=== PATIENT | male | born 1975 | race Caucasian/White ===

== ENCOUNTER 2018-02-05 22:18 | Emergency (ER) | payer OTHER, SELFPAY ==
[2018-02-05 22:27] VITALS: BP 146/87; PULSE 72; RESP 14; TEMP 37.2; O2SAT 99
--- NOTE | 2018-02-05 22:34 | ED.ABDPAIN ---
HPI - Abdominal Pain General Chief Complaint: Abdominal Pain Stated Complaint: STOMACH ISSUES Time Seen by Provider: 02/05/18 22:23 Source: patient and family Mode of arrival: ambulatory Limitations: no limitations History of Present Illness HPI narrative: 42-year-old nonsmoking male presents with a few days of epigastric discomfort, bloating with nausea. His symptoms worsened with food and drink. He denies any fever or chills. He has had similar symptoms in the past when he had gallbladder disease which resulted in a surgery. He denies chest pain or shortness of breath. He denies any diarrhea and is otherwise well and free of complaint MD complaint: abdominal pain Onset (ago): day(s) Pain Consistency: intermittent Location: epigastric Severity: moderate Quality: cramping and aching Radiation: back Relieving factors: nothing Exacerbating factors: eating Related Data Home Medications Medication Instructions Recorded Confirmed lisinopril 02/05/18 warfarin 02/05/18 Previous Rx's Medication Instructions Recorded pantoprazole [Protonix] 40 mg PO DAILY #30 tab 02/05/18 Allergies Allergy/AdvReac Type Severity Reaction Status Date / Time No Known Drug Allergies Allergy Verified 02/05/18 22:29 Review of Systems Review of Systems All systems reviewed & are unremarkable except as noted in HPI and below Constitutional Denies chills, Denies fever(s), Denies lethargy and Denies weakness Eyes Denies change in vision, Denies eye discharge, Denies irritation and Denies loss of vision ENT Ears, Nose, Mouth, and Throat: Denies change in voice, Denies neck pain and Denies sore throat Cardiovascular Denies chest pain, Denies irregular heart rhythm, Denies lightheadedness, Denies palpitations, Denies dyspnea, Denies dyspnea on exertion and Denies orthopnea Respiratory Denies cough, Denies dyspnea, Denies dyspnea on exertion and Denies wheezing Gastrointestinal Gastrointestinal: Reports abdominal pain, Denies change in bowel habits, Denies diarrhea, Reports nausea and Denies vomiting Genitourinary Denies hematuria, Denies flank pain, Denies urinary incontinence and Denies urinary urgency Musculoskeletal Denies neck pain Integumentary/Breasts Denies pruritus, Denies erythema, Denies rash and Denies wounds Neurologic Denies confusion, Denies loss of vision and Denies weakness Psychiatric Denies anxiety, Denies confusion, Denies depression, Denies homicidal ideation and Denies suicidal ideation Endocrine Denies palpitations Hematologic/Lymphatic Denies easy bruising Allergic/Immunologic Denies wheezing [facility] Social History Smoking Status: Never smoker Exam Narrative Exam Narrative: GENERAL: This is a well-nourished, well-developed patient, in mild distress. HEAD: Atraumatic. Normocephalic. No temporal or scalp tenderness. EYES: Pupils equal round and reactive. Extraocular motions intact. No scleral icterus. No injection or drainage. ENT: Nose without bleeding, purulent drainage or septal hematoma. Throat without erythema, tonsillar hypertrophy or exudate. Uvula midline. Airway patent. NECK: Trachea midline. No JVD or lymphadenopathy. Supple, nontender, no meningeal signs. CARDIOVASCULAR: Regular rate and rhythm without murmurs, gallops, or rubs. RESPIRATORY: Clear to auscultation. Breath sounds equal bilaterally. No wheezes, rales, or rhonchi. GASTROINTESTINAL: Abdomen soft, mild epigastric tenderness, nondistended. No hepato-splenomegaly, or palpable masses. No guarding. EXTREMITIES: No clubbing, cyanosis, or edema. No joint tenderness, effusion, or edema noted. BACK: Nontender without deformity or crepitance. No flank tenderness. NEURO: AOx3. SKIN: No rash or erythema. Initial Vital Signs Initial Vital Signs: Vital Signs Temperature 99.0 F 02/05/18 22:27 Pulse Rate 72 02/05/18 22:27 Respiratory Rate 14 02/05/18 22:27 Blood Pressure 146/87 H 02/05/18 22:27 Pulse Oximetry 99 02/05/18 22:27 Course Orders Ordered: ED Orders 02/05/18 22:46 Complete Blood Count AUTO DIFF Stat Comprehensive Metabolic Panel Stat Lipase Stat Prothrombin Time INR Stat Discontinued Medications Sodium Chloride (Normal Saline 0.9%) 1,000 mls @ 1,000 mls/hr IV BOLUS ONE Stop: 02/05/18 23:34 Last Infusion: 02/05/18 23:43 Dose: 0 mls/hr Admin: 02/05/18 22:54 Dose: 1,000 mls/hr Ondansetron HCl (Zofran) 4 mg IV NOW ONE Stop: 02/05/18 22:36 Pantoprazole Sodium (Protonix) 40 mg IV NOW ONE Stop: 02/05/18 22:36 Last Admin: 02/05/18 22:54 Dose: 40 mg Vital Signs - 8 hr 02/05/18 22:27 02/05/18 23:42 Temperature 99.0 F Pulse Rate 72 60 Respiratory Rate 14 14 Blood Pressure 146/87 H 118/70 Pulse Oximetry 99 100 MDM - Abdominal Pain Differential Diagnosis Differential diagnosis: Likely acute appendicitis, calculus of kidney, constipation, diverticulitis, gastroenteritis, pancreatitis and small bowel obstruction Medical Records Attestation: I reviewed the patient's medical records. Lab Data Attestation: I reviewed the patient's lab results. Result diagrams: 02/05/18 22:46 02/05/18 22:46 Lab Results 02/05/18 02/05/18 02/05/18 Range/Units 22:46 22:46 22:46 WBC 7.2 (4.5-11.0) X10^3/uL RBC 4.91 (4.5-5.9) X10^6/uL Hgb 15.9 (13.5-17.5) g/dL Hct 45.6 (41-53) % MCV 92.9 (80-100) fL MCH 32.5 (26-34) PG MCHC 35.0 (30-36) % RDW 12.9 (11.6-14.8) % Plt Count 244 (150-400) X10^3/uL Neut % (Auto) 58.6 (50-75) % Lymph % (Auto) 31.6 (25-40) % [place] % (Auto) 7.2 (3-14) % Eos % (Auto) 1.9 L (2-4) % Baso % (Auto) 0.7 (0-2) % Neut # (Auto) 4200 (0524-8218) /uL PT 28.9 H (10.1-12.7) SECONDS INR 2.5 H (0.9-1.3) Sodium 137 (137-145) mmol/L Potassium 4.1 (3.4-5.1) mmol/L Chloride 100 (98-107) mmol/L Carbon Dioxide 27 (22-32) mmol/L BUN 14 (9-20) mg/dL Creatinine 0.80 (0.66-1.25) mg/dL Estimated GFR > 60.0 (>60) mL/min BUN/Creatinine Ratio 17.5 (6-22) Glucose 94 (70-100) mg/dL Calcium 9.4 (8.4-10.2) mg/dL Total Bilirubin 0.9 (0.2-1.3) mg/dL AST 35 (17-59) IU/L ALT 41 (21-72) IU/L Alkaline Phosphatase 78 (38-126) U/L Total Protein 7.6 (6.3-8.2) g/dL Albumin 4.4 (3.5-5.0) g/dL Globulin 3.2 (1.7-4.1) g/dL Albumin/Globulin Ratio 1.4 (1.0-2.8) Lipase 56 (23-300) U/L MDM Narrative Medical decision making narrative: Pancreatitis considered but thought less likely given normal labs Biliary or hepatic problems considered but thought less likely given normal labs. Patient's history and physical are most consistent with reflux or ulcer Discharge Plan Departure Patient Disposition: Home Clinical Impression: Abdominal pain, acute, epigastric, Dyspepsia Discharge Date/Time: 02/05/18 23:42 Interventions: ED Discharge Assessment Last Done: 02/05/18 23:42 Instructions: DI for Dyspepsia Activity Restrictions/Additional Instructions: 1. Drink plenty of fluids with frequent small sips. 2. For the next 24 hours a clear liquid diet is advised. After that please employ a brat diet which would include bananas, rice, apples, toast. 3. Please take medications as directed. 4. Please follow-up with your doctor in the next 1-2 days. Call the office for an appointment. 5. Please return to the emergency Department for any worsening or persistent symptoms, such as increasing pain or fever. Prescriptions: New pantoprazole [Protonix] 40 mg tablet,delayed release (DR/EC) 40 mg PO DAILY Qty: 30 RF: 0 No Action lisinopril 2.5 mg Tablet RF: 0 warfarin RF: 0
[2018-02-05] MEDS: PANTOPRAZOLE 40 MG VIAL IV (22:54)
[2018-02-05] MEDS: SODIUM CHLORIDE 0.9% 1,000 ML 1000 ML IV (22:54)
[2018-02-05 22:55] LABS: Add Manual Diff / Slide Review NO; Basophils Percent Auto 0.7 % (0-2); Eosinophils Percent Auto 1.9 % (2-4); Hematocrit 45.6 % (41-53); Hemoglobin 15.9 g/dL (13.5-17.5); Lymphocytes Percent Auto 31.6 % (25-40); Mean Corpuscular Hemoglobin 32.5 PG (26-34); Mean Corpuscular Volume 92.9 fL (80-100); Monocytes Percent Auto 7.2 % (3-14); Neutrophils Absolute Auto 4200 /uL (1500-7000); Neutrophils Percent Auto 58.6 % (50-75); Platelet Count 244 X10^3/uL (150-400); Red Blood Cell Count 4.91 X10^6/uL (4.5-5.9); Red Cell Distribution Width 12.9 % (11.6-14.8); White Blood Cell Count 7.2 X10^3/uL (4.5-11.0)
[2018-02-05 23:00] LABS: INR 2.5 (0.9-1.3); Prothrombin Time 28.9 SECONDS (10.1-12.7)
[2018-02-05 23:05] LABS: Alanine Aminotransferase 41 IU/L (21-72); Albumin 4.4 g/dL (3.5-5.0); Albumin Globulin Ratio 1.4 (1.0-2.8); Alkaline Phosphatase 78 U/L (38-126); Aspartate Aminotransferase 35 IU/L (17-59); BUN Creatinine Ratio 17.5 (6-22); Bilirubin Total 0.9 mg/dL (0.2-1.3); Blood Urea Nitrogen 14 mg/dL (9-20); Calcium 9.4 mg/dL (8.4-10.2); Carbon Dioxide 27 mmol/L (22-32); Chloride 100 mmol/L (98-107); Estimated Glomerular Filt Rate > 60.0 mL/min (>60); Globulin 3.2 g/dL (1.7-4.1); Glucose 94 mg/dL (70-100); HEMOLYSIS 15 (0-50); Lipase 56 U/L (23-300); Potassium 4.1 mmol/L (3.4-5.1); Sodium 137 mmol/L (137-145); Total Protein 7.6 g/dL (6.3-8.2)
[2018-02-05 23:42] VITALS: BP 118/70; PULSE 60; RESP 14; O2SAT 100
== END 2018-02-05 23:42 | disposition home or self-care (01) ==
PROVIDERS: Emergency Provider Emergency Medicine
DX: R10.9 Unspecified abdominal pain (principal); R10.13 Epigastric pain
CPT/HCPCS: 36591; 80053; 83690; 85025; 85610; 96361; 96374; 96375; 99283; 99284; C9113

== ENCOUNTER 2018-04-07 16:45 | Emergency (ER) | payer OTHER, SELFPAY ==
[2018-04-07 16:58] VITALS: BP 135/88; PULSE 80; RESP 16; TEMP 36.6; O2SAT 100; BMI 32.5
[2018-04-07 18:01] LABS: Add Manual Diff / Slide Review NO; Basophils Absolute Auto 0 /uL (0-100); Basophils Percent Auto 0.7 % (0-2); Eosinophils Absolute Auto 100 /uL (0-450); Hematocrit 44.6 % (41-53); Hemoglobin 15.1 g/dL (13.5-17.5); Lymphocytes Absolute Auto 2100 /uL (1100-4500); Mean Corpuscular HGB Conc 33.9 % (30-36); Mean Corpuscular Hemoglobin 32.2 PG (26-34); Monocytes Absolute Auto 600 /uL (0-900); Monocytes Percent Auto 8.6 % (3-14); Neutrophils Absolute Auto 3700 /uL (1500-7000); Neutrophils Percent Auto 56.7 % (50-75); Platelet Count 209 X10^3/uL (150-400); Red Blood Cell Count 4.69 X10^6/uL (4.5-5.9); Red Cell Distribution Width 13.3 % (11.6-14.8); White Blood Cell Count 6.5 X10^3/uL (4.5-11.0)
[2018-04-07 18:04] LABS: Blood Urea Nitrogen 15 mg/dL (9-20); Calcium 9.1 mg/dL (8.4-10.2); Carbon Dioxide 28 mmol/L (22-32); Chloride 103 mmol/L (98-107); Creatine Kinase 95 U/L (55-170); Estimated Glomerular Filt Rate > 60.0 mL/min (>60); Glucose 95 mg/dL (70-100); HEMOLYSIS < 15 (0-50); Lactate (Lactic Acid) 0.9 mmol/L (0.7-2.1); Magnesium 2.1 mg/dL (1.6-2.3); Potassium 4.3 mmol/L (3.4-5.1); Sodium 138 mmol/L (137-145)
[2018-04-07 18:13] LABS: D Dimer < 200 ng/mL (<230)
[2018-04-07 18:15] LABS: Troponin I < 0.012 ng/mL (0.01-0.034)
--- NOTE | 2018-04-07 18:24 | DI.US.S_ITS ---
PROCEDURE: US PERIPH VENOUS LOW EXTREM BI INDICATIONS: HISTORY DVT; CALF PAIN TECHNIQUE: Real-time imaging, as well as color and pulse Doppler interrogation, were performed of the deep veins of both legs from the inguinal ligament to the popliteal fossa. COMPARISON: None. FINDINGS: The deep veins are normally compressible, and free of intraluminal thrombus. Color and pulse Doppler demonstrate normal phasic intravascular flow. There is normal augmentation response to distal compression maneuver. IMPRESSION: Negative for deep venous thrombosis of the bilateral lower extremities. Dictated by: Chema Machado M.D. on 04/07/2018 at 19:45 Approved by: Chema Machado M.D. on 04/07/2018 at 19:45
[2018-04-07 18:27] LABS: B Type Natriuretic Peptide < 100 (<100)
[2018-04-07 18:52] LABS: Procalcitonin < 0.05 ng/mL (<0.5)
[2018-04-07 19:02] VITALS: BP 116/58; PULSE 73; RESP 18; O2SAT 100
--- NOTE | 2018-04-07 19:50 | ED.SOB ---
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 He denies any specific injury or overuse syndrome. His pain is worse with motion and improves with rest. He denies any cough or hemoptysis. He is not currently short of breath. He continues to take his Coumadin, has missed no doses and most recent INR was 2.3. He did have an episode of left leg pain in the absence of injury yesterday. He denies recent travel, surgery or injury. He denies chest pain MD Complaint: shortness of breath Onset (ago): day(s) Severity: mild Consistency/Duration: intermittent and now resolved Relieving factors: nothing Exacerbating factors: movement Known history of: PE and DVT Treatment prior to arrival: none Related Data Home oxygen amount: none Home Medications Medication Instructions Recorded Confirmed lisinopril 02/05/18 warfarin 02/05/18 Previous Rx's Medication Instructions Recorded pantoprazole [Protonix] 40 mg PO DAILY #30 tab 02/05/18 Allergies Allergy/AdvReac Type Severity Reaction Status Date / Time No Known Drug Allergies Allergy Verified 02/05/18 22:29 Review of Systems Constitutional Denies chills, Denies fever(s), Denies lethargy and Denies weakness Eyes Denies change in vision, Denies eye discharge, Denies irritation and Denies loss of vision ENT Ears, Nose, Mouth, and Throat: Denies change in voice, Denies neck pain and Denies sore throat Cardiovascular Denies chest pain, Denies irregular heart rhythm, Denies lightheadedness, Denies palpitations, Reports dyspnea, Denies dyspnea on exertion and Denies orthopnea Respiratory Denies cough, Reports dyspnea, Denies dyspnea on exertion and Denies wheezing Gastrointestinal Gastrointestinal: Denies abdominal pain, Denies change in bowel habits, Denies diarrhea, Denies nausea and Denies vomiting Genitourinary Denies hematuria, Denies flank pain, Denies urinary incontinence and Denies urinary urgency Musculoskeletal Reports back pain and Denies neck pain Integumentary/Breasts Denies pruritus, Denies erythema, Denies rash and Denies wounds Neurologic Denies confusion, Denies loss of vision and Denies weakness Psychiatric Denies anxiety, Denies confusion, Denies depression, Denies homicidal ideation and Denies suicidal ideation Endocrine Denies palpitations Hematologic/Lymphatic Denies easy bruising Allergic/Immunologic Denies wheezing PFSH Social History Smoking Status: Never smoker Social History Smoking Status: Never smoker Exam Narrative Exam Narrative: GENERAL: This is a well-nourished, well-developed patient, in mild distress. HEAD: Atraumatic. Normocephalic. No temporal or scalp tenderness. EYES: Pupils equal round and reactive. Extraocular motions intact. No scleral icterus. No injection or drainage. ENT: Nose without bleeding, purulent drainage or septal hematoma. Throat without erythema, tonsillar hypertrophy or exudate. Uvula midline. Airway patent. NECK: Trachea midline. No JVD or lymphadenopathy. Supple, nontender, no meningeal signs. CARDIOVASCULAR: Regular rate and rhythm without murmurs, gallops, or rubs. RESPIRATORY: Clear to auscultation. Breath sounds equal bilaterally. No wheezes, rales, or rhonchi. GASTROINTESTINAL: Abdomen soft, non-tender, nondistended. No hepato-splenomegaly, or palpable masses. No guarding. EXTREMITIES: No clubbing, cyanosis, or edema. No joint tenderness, effusion, or edema noted. BACK: tenderness to palpation of the he is paraspinal muscles in the midthoracic region on the right upper back medial to the scapula No flank tenderness. NEURO: AOx3. SKIN: No rash or erythema. Initial Vital Signs Initial Vital Signs: Vital Signs Temperature 97.9 F 04/07/18 16:58 Pulse Rate 80 04/07/18 16:58 Respiratory Rate 16 04/07/18 16:58 Blood Pressure 135/88 04/07/18 16:58 Pulse Oximetry 100 04/07/18 16:58 Course Orders Ordered: ED Orders 04/07/18 17:32 Consult to Respiratory Therapy Evaluate & Treat EKG-12 Lead Stat 04/07/18 17:40 B Type Natriuretic Peptide Stat Basic Metabolic Panel Stat Complete Blood Count AUTO DIFF Stat D Dimer Stat Lactate (Lactic Acid) Stat Magnesium Stat Procalcitonin Stat Troponin & CK Cardiac Panel Stat 04/07/18 18:24 US periph venous low extrem bi Stat Vital Signs - 8 hr 04/07/18 19:02 04/07/18 20:17 Pulse Rate 73 64 Respiratory Rate 18 12 Blood Pressure 113/58 L Blood Pressure [Right Arm] 116/58 L Pulse Oximetry 100 98 MDM - SOB/Dyspnea Differential Diagnosis Likely acute exacerbation of chronic obstructive airways disease, congestive heart failure, community acquired pneumonia, asthma with exacerbation and pulmonary embolism Medical Records Attestation: I reviewed the patient's medical records. Lab Data Attestation: I reviewed the patient's lab results. Result diagrams: 04/07/18 17:40 04/07/18 17:40 Lab Results 04/07/18 04/07/18 04/07/18 Range/Units 17:40 17:40 17:40 WBC 6.5 (4.5-11.0) X10^3/uL RBC 4.69 (4.5-5.9) X10^6/uL Hgb 15.1 (13.5-17.5) g/dL Hct 44.6 (41-53) % MCV 95.0 (80-100) fL MCH 32.2 (26-34) PG MCHC 33.9 (30-36) % RDW 13.3 (11.6-14.8) % Plt Count 209 (150-400) X10^3/uL Neut % (Auto) 56.7 (50-75) % Lymph % (Auto) 32.0 (25-40) % [place] % (Auto) 8.6 (3-14) % Eos % (Auto) 2.0 (2-4) % Baso % (Auto) 0.7 (0-2) % Neut # (Auto) 3700 (7163-5128) /uL Lymph # (Auto) 2100 (1681-5631) /uL [place] # (Auto) 600 (0-900) /uL Eos # (Auto) 100 (0-450) /uL Baso # (Auto) 0 (0-100) /uL D-Dimer < 200 (<230) ng/mL Sodium 138 (137-145) mmol/L Potassium 4.3 (3.4-5.1) mmol/L Chloride 103 (98-107) mmol/L Carbon Dioxide 28 (22-32) mmol/L BUN 15 (9-20) mg/dL Creatinine 1.00 (0.66-1.25) mg/dL Estimated GFR > 60.0 (>60) mL/min BUN/Creatinine Ratio 15.0 (6-22) Glucose 95 (70-100) mg/dL Lactate (0.7-2.1) mmol/L Calcium 9.1 (8.4-10.2) mg/dL Magnesium 2.1 (1.6-2.3) mg/dL Total Creatine Kinase 95 (55-170) U/L CK-MB (CK-2) TNP CK-MB (CK-2) Rel Index TNP Troponin I < 0.012 (0.01-0.034) ng/mL B-Natriuretic Peptide < 100 (<100) Procalcitonin (<0.5) ng/mL 04/07/18 04/07/18 Range/Units 17:40 17:40 WBC (4.5-11.0) X10^3/uL RBC (4.5-5.9) X10^6/uL Hgb (13.5-17.5) g/dL Hct (41-53) % MCV (80-100) fL MCH (26-34) PG MCHC (30-36) % RDW (11.6-14.8) % Plt Count (150-400) X10^3/uL Neut % (Auto) (50-75) % Lymph % (Auto) (25-40) % [place] % (Auto) (3-14) % Eos % (Auto) (2-4) % Baso % (Auto) (0-2) % Neut # (Auto) (1148-6803) /uL Lymph # (Auto) (9779-8661) /uL [place] # (Auto) (0-900) /uL Eos # (Auto) (0-450) /uL Baso # (Auto) (0-100) /uL D-Dimer (<230) ng/mL Sodium (137-145) mmol/L Potassium (3.4-5.1) mmol/L Chloride (98-107) mmol/L Carbon Dioxide (22-32) mmol/L BUN (9-20) mg/dL Creatinine (0.66-1.25) mg/dL Estimated GFR (>60) mL/min BUN/Creatinine Ratio (6-22) Glucose (70-100) mg/dL Lactate 0.9 (0.7-2.1) mmol/L Calcium (8.4-10.2) mg/dL Magnesium (1.6-2.3) mg/dL Total Creatine Kinase (55-170) U/L CK-MB (CK-2) CK-MB (CK-2) Rel Index Troponin I (0.01-0.034) ng/mL B-Natriuretic Peptide (<100) Procalcitonin < 0.05 (<0.5) ng/mL Imaging Data Venous US: Radiologist's impression: [address] [address] Ultrasound Report Signed Patient: Mike Botello LMR#: [id number] : 1975Acct:[id number] Age/Sex: 42 / MDate of Service: 04/07/18 Loc: ED Accession Number: [id number] Procedure: US periph venous low extrem bi Ordering Provider: Chetan Gomez D.O. PROCEDURE: US PERIPH VENOUS LOW EXTREM BI INDICATIONS: HISTORY DVT; CALF PAIN TECHNIQUE: Real-time imaging, as well as color and pulse Doppler interrogation, were performed of the deep veins of both legs from the inguinal ligament to the popliteal fossa. COMPARISON: None. FINDINGS: The deep veins are normally compressible, and free of intraluminal thrombus. Color and pulse Doppler demonstrate normal phasic intravascular flow. There is normal augmentation response to distal compression maneuver. IMPRESSION: Negative for deep venous thrombosis of the bilateral lower extremities. Dictated by: Chema Machado M.D. on 04/07/2018 at 19:45 Approved by: Chema Machado M.D. on 04/07/2018 at 19:45 ECG Data Attestation: I personally reviewed and interpreted this ECG as follows: Prior ECG tracings: not available for review Interpretation: EKG is normal sinus rhythm rate [73 ] and free of any signs of ischemia or ectopy. No ST segmental elevation or depression. No T wave inversions MDM Narrative Medical decision making narrative: 42-year-old male with history of DVT and PE is anticoagulated on Coumadin presents with an episode of shortness of breath which has since resolved and some ongoing right upper back pain. His fear is of recurrence of pulmonary embolism. We had extensive discussions at the bedside and significant sure decision making place a role in the evaluation this patient. At no point has he had chest pain and all vital signs are stable. His EKG is a normal sinus rhythm without signs of heart strain. Patient has negative troponin and BNP, suggesting lack of strain. Bilateral lower extremity ultrasounds demonstrated no DVT and current D-dimer is negative. Given the above-stated findings we elect not to pursue a pulmonary embolism with a CT angiogram at this point time. Patient and are given extensive return precautions and are able to verbalize understanding Discharge Plan Departure Patient Disposition: Home Clinical Impression: Acute thoracic myofascial strain Qualifiers: Encounter type: initial encounter Qualified Code(s): S29.019A - Strain of muscle and tendon of unspecified wall of thorax, initial encounter Discharge Date/Time: 04/07/18 20:21 Interventions: ED Discharge Assessment Last Done: 04/07/18 20:17 Instructions: DI for Thoracic Back Pain Activity Restrictions/Additional Instructions: *You have been diagnosed with [ acute upper back pain ] *What to do: *Take medications as directed *Follow up with your primary care provider in 2-3 days, call for an appointment. Let them know you were seen in the Emergency Department and that we ask that you be seen in follow up *Return to ER if you should have any new, worsening or concerning symptoms Prescriptions: No Action lisinopril 2.5 mg Tablet RF: 0 warfarin RF: 0 pantoprazole [Protonix] 40 mg tablet,delayed release (DR/EC) 40 mg PO DAILY Qty: 30 RF: 0 Referrals: Pavel Elliott MD [Primary Care Provider] -
[2018-04-07 20:17] VITALS: BP 113/58; PULSE 64; RESP 12; O2SAT 98
== END 2018-04-07 20:21 | disposition home or self-care (01) ==
PROVIDERS: Emergency Medicine; Emergency Provider Emergency Medicine; PCP Family Medicine
DX: S29.019A Strain of muscle and tendon of unspecified wall of thorax, initial encounter (principal); Z86.711 Personal history of pulmonary embolism; Z79.01 Long term (current) use of anticoagulants
CPT/HCPCS: 36591; 80048; 82550; 83605; 83735; 83880; 84145; 84484; 85025; 85379; 93005; 93010; 93970; 99283; 99285

== ENCOUNTER → 2018-04-14 10:06 | Outpatient (CLI) | payer OTHER, SELFPAY | PROVIDERS: PCP Family Medicine; Visit Provider Physician Assistant | DX: R68.89 Other general symptoms and signs (principal) | CPT/HCPCS: 87400 ==

== ENCOUNTER 2018-04-29 14:55 | Emergency (ER) | payer OTHER, SELFPAY ==
[2018-04-29 15:01] VITALS: BP 119/85; PULSE 80; RESP 16; TEMP 36.5; O2SAT 97; BMI 30.5
[2018-04-29 15:31] LABS: Add Manual Diff / Slide Review NO; Basophils Absolute Auto 100 /uL (0-100); Eosinophils Absolute Auto 0 /uL (0-450); Eosinophils Percent Auto 0.7 % (2-4); Hematocrit 44.2 % (41-53); Hemoglobin 15.2 g/dL (13.5-17.5); Lymphocytes Absolute Auto 1700 /uL (1100-4500); Lymphocytes Percent Auto 26.3 % (25-40); Mean Corpuscular HGB Conc 34.4 % (30-36); Mean Corpuscular Hemoglobin 32.2 PG (26-34); Mean Corpuscular Volume 93.5 fL (80-100); Monocytes Absolute Auto 500 /uL (0-900); Monocytes Percent Auto 7.1 % (3-14); Neutrophils Absolute Auto 4200 /uL (1500-7000); Neutrophils Percent Auto 64.9 % (50-75); Platelet Count 304 X10^3/uL (150-400); Red Blood Cell Count 4.73 X10^6/uL (4.5-5.9); Red Cell Distribution Width 12.9 % (11.6-14.8); White Blood Cell Count 6.5 X10^3/uL (4.5-11.0)
--- NOTE | 2018-04-29 15:34 | DI.US.S_ITS ---
PROCEDURE: US PERIP VENOUS LOW EXTREM LT INDICATIONS: LOWER LEFT LEG PAIN AND SWELLING, HISTORY OF CLOT TECHNIQUE: Real-time imaging, as well as color and pulse Doppler interrogation, were performed of the lower extremity deep veins from the inguinal ligament to the popliteal fossa. COMPARISON: [facility], , [facility] VENOUS LOW EXTREM BI, 04/07/2018, 18:53. FINDINGS: There are nonocclusive filling defects in the popliteal vein consistent with deep venous thrombosis. The common femoral and superficial femoral veins are normally compressible, and free of intraluminal thrombus. IMPRESSION: Non-occlusive filling defect involving the left popliteal vein consistent with DVT. The result was discussed with Shani Campos in ER. Dictated by: Raphael Gant M.D. on 04/29/2018 at 16:46 Approved by: Raphael Gant M.D. on 04/29/2018 at 16:50
[2018-04-29 15:41] LABS: INR 3.1 (0.9-1.3); Prothrombin Time 36.8 SECONDS (10.1-12.7)
[2018-04-29 15:46] LABS: Alanine Aminotransferase 34 IU/L (21-72); Albumin 4.7 g/dL (3.5-5.0); Albumin Globulin Ratio 1.6 (1.0-2.8); Alkaline Phosphatase 78 U/L (38-126); Aspartate Aminotransferase 29 IU/L (17-59); BUN Creatinine Ratio 15.6 (6-22); Bilirubin Total 0.6 mg/dL (0.2-1.3); Blood Urea Nitrogen 14 mg/dL (9-20); Calcium 9.2 mg/dL (8.4-10.2); Carbon Dioxide 29 mmol/L (22-32); Chloride 101 mmol/L (98-107); Estimated Glomerular Filt Rate > 60.0 mL/min (>60); Globulin 2.9 g/dL (1.7-4.1); Glucose 95 mg/dL (70-100); HEMOLYSIS < 15 (0-50); Potassium 3.9 mmol/L (3.4-5.1); Sodium 138 mmol/L (137-145); Total Protein 7.6 g/dL (6.3-8.2)
[2018-04-29 15:47] LABS: D Dimer < 200 ng/mL (<230)
--- NOTE | 2018-04-29 15:53 | ED_ITS ---
HPI - Extremity Injury (Lower) <TOM Ramos - Last Filed: 04/29/18 19:41> General Chief Complaint: Extremity Injury, Lower Stated Complaint: pain left leg, states PE Time Seen by Provider: 04/29/18 15:15 Source: patient and family Mode of arrival: ambulatory Limitations: no limitations History of Present Illness HPI Narrative: Patient is a 42-year-old male nonsmoker presents with his with a chief complaint of left lower leg pain. 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 He did complain of slight shortness of breath while going up the stairs yesterday. He denies any fevers, but states he was treated for the flu recently. He was worried that his inactivity while he had the flu led to a DVT. The ache is described as pulling at the back of his calf. He has been hospitalized with a saddle embolus prior. He denies any current chest pain or current shortness of breath. Related Data Home Medications Medication Instructions Recorded Confirmed warfarin 5 mg tablet 5 mg PO 5XW tab 04/14/18 04/29/18 warfarin 7.5 mg tablet 7.5 mg PO SUWE tab 04/14/18 04/29/18 lisinopril 5 mg PO DAILY 04/29/18 04/29/18 Previous Rx's Medication Instructions Recorded hydroxyzine pamoate 50 mg PO TID-QID PRN #20 cap 04/29/18 rivaroxaban [Xarelto] 15 mg PO BID 21 Days #42 tab 04/29/18 Allergies Allergy/AdvReac Type Severity Reaction Status Date / Time No Known Drug Allergies Allergy Verified 04/29/18 15:06 Review of Systems <TOM Ramos - Last Filed: 04/29/18 19:41> Review of Systems GENERAL: Denies chills, fatigue, malaise, fever, sweats. HEENT: Denies sinus pain, ear pain, sore throat, difficulty swallowing, dizziness. RESPIRATORY: See HPI CARDIOVASCULAR: Denies chest pain, palpitations, orthopnea, edema, GASTROINTESTINAL: Denies nausea, vomiting, abdominal pain, diarrhea, con stipation, melena. : Denies dysuria, frequency, incontinence, hematuria, urinary retention. MUSCULOSKELETAL: See HPI SKIN: Denies rash, skin lesions, or other NEUROLOGIC: Denies weakness, headache, numbness, change in speech, confusion, seizures, incoordination. PSYCHIATRIC: No concerning psychosocial issues. 12 point review of systems is negative except for those stated above PFSH <TOM Ramos - Last Filed: 04/29/18 19:41> Social History Smoking Status: Never smoker Exam <TOM Ramos - Last Filed: 04/29/18 19:41> Narrative Exam Narrative: GENERAL: This is a well-nourished, well-developed patient, in no acute distress HEAD: Atraumatic. Normocephalic. No temporal or scalp tenderness. EYES: Pupils equal round and reactive. Extraocular motions intact. No scleral ic terus. No injection or drainage. ENT: Nose without bleeding, purulent drainage or septal hematoma. Throat without erythema, tonsillar hypertrophy or exudate. Uvula midline. Airway patent. NECK: Trachea midline. No JVD or lymphadenopathy. Supple, nontender, no meningeal signs. CARDIOVASCULAR: Regular rate and rhythm without murmurs, gallops, or rubs. RESPIRATORY: Clear to auscultation. Breath sounds equal bilaterally. No wheezes, rales, or rhonchi. No cough. No increased respiratory effort. No stridor. GASTROINTESTINAL: Abdomen soft, non-tender, nondistended. No hepato- splenomegaly, or palpable masses. No guarding. EXTREMITIES: No clubbing, cyanosis, or edema. No joint tenderness, effusion, or edema noted. Pain to palpation of left calf, posterior aspect. Positive pedal pulses. BACK: Nontender without deformity or crepitance. No flank tenderness. NEURO: AOx3. SKIN: No rash or erythema. No erythema noted. Initial Vital Signs Initial Vital Signs: Vital Signs Temperature 97.7 F 04/29/18 15:01 Pulse Rate 80 04/29/18 15:01 Respiratory Rate 16 04/29/18 15:01 Blood Pressure 119/85 04/29/18 15:01 Pulse Oximetry 97 04/29/18 15:01 <Pau Herron DO - Last Filed: 05/01/18 10:15> Initial Vital Signs Initial Vital Signs: Vital Signs Temperature 97.7 F 04/29/18 15:01 Pulse Rate 80 04/29/18 15:01 Respiratory Rate 16 04/29/18 15:01 Blood Pressure 119/85 04/29/18 15:01 Pulse Oximetry 97 04/29/18 15:01 Course <TOM Ramos - Last Filed: 04/29/18 19:41> Orders Ordered: Discontinued Medications Lorazepam (Ativan) 1 mg PO NOW ONE Stop: 04/29/18 16:10 Last Admin: 04/29/18 16:26 Dose: 1 mg Consultations Consultation #1: I spoke with Dr. Jimenez, the agriculture consultant physician for Dr. Murillo. She recommended that the patient be started on Xarelto or Eliquis. She also initiated a hematology referral, and scheduled the patient for a PCP appointment at 2:00 p.m. on Sunday. Vital Signs - 8 hr 04/29/18 15:01 04/29/18 16:05 04/29/18 18:50 Temperature 97.7 F Pulse Rate 80 78 88 Respiratory Rate 16 15 16 Blood Pressure 119/85 Blood Pressure [Left Arm] 129/89 120/88 Pulse Oximetry 97 98 97 <Pau Herron DO - Last Filed: 05/01/18 10:15> Orders Ordered: Discontinued Medications Lorazepam (Ativan) 1 mg PO NOW ONE Stop: 04/29/18 16:10 Last Admin: 04/29/18 16:26 Dose: 1 mg Vital Signs - 8 hr 04/29/18 15:01 04/29/18 16:05 04/29/18 18:50 Temperature 97.7 F Pulse Rate 80 78 88 Respiratory Rate 16 15 16 Blood Pressure 119/85 Blood Pressure [Left Arm] 129/89 120/88 Pulse Oximetry 97 98 97 MDM - Extremity Injury (Lower) <TOM Ramos - Last Filed: 04/29/18 19:41> Lab Data Result diagrams: 04/29/18 15:25 04/29/18 15:25 Lab Results 04/29/18 04/29/18 04/29/18 Range/Units 15:25 15:25 15:25 WBC 6.5 (4.5-11.0) X10^3/uL RBC 4.73 (4.5-5.9) X10^6/uL Hgb 15.2 (13.5-17.5) g/dL Hct 44.2 (41-53) % MCV 93.5 (80-100) fL MCH 32.2 (26-34) PG MCHC 34.4 (30-36) % RDW 12.9 (11.6-14.8) % Plt Count 304 (150-400) X10^3/uL Neut % (Auto) 64.9 (50-75) % Lymph % (Auto) 26.3 (25-40) % [place] % (Auto) 7.1 (3-14) % Eos % (Auto) 0.7 L (2-4) % Baso % (Auto) 1.0 (0-2) % Neut # (Auto) 4200 (5207-3029) /uL Lymph # (Auto) 1700 (3114-9049) /uL [place] # (Auto) 500 (0-900) /uL Eos # (Auto) 0 (0-450) /uL Baso # (Auto) 100 (0-100) /uL PT 36.8 H (10.1-12.7) SECONDS INR 3.1 H (0.9-1.3) D-Dimer < 200 (<230) ng/mL Sodium 138 (137-145) mmol/L Potassium 3.9 (3.4-5.1) mmol/L Chloride 101 (98-107) mmol/L Carbon Dioxide 29 (22-32) mmol/L BUN 14 (9-20) mg/dL Creatinine 0.90 (0.66-1.25) mg/dL Estimated GFR > 60.0 (>60) mL/min BUN/Creatinine Ratio 15.6 (6-22) Glucose 95 (70-100) mg/dL Calcium 9.2 (8.4-10.2) mg/dL Total Bilirubin 0.6 (0.2-1.3) mg/dL AST 29 (17-59) IU/L ALT 34 (21-72) IU/L Alkaline Phosphatase 78 (38-126) U/L Total Protein 7.6 (6.3-8.2) g/dL Albumin 4.7 (3.5-5.0) g/dL Globulin 2.9 (1.7-4.1) g/dL Albumin/Globulin Ratio 1.6 (1.0-2.8) Imaging Data Venous US: Radiologist's impression: [address] [address] Ultrasound Report Signed Patient: Mike Botello LMR#: [id number] : 1975Acct:[id number] Age/Sex: 42 / MDate of Service: 04/29/18 Loc: ED Accession Number: [id number] Procedure: US perip venous low extrem lt Ordering Provider: Shani Campos PROCEDURE: US PERIP VENOUS LOW EXTREM LT INDICATIONS: LOWER LEFT LEG PAIN AND SWELLING, HISTORY OF CLOT TECHNIQUE: Real-time imaging, as well as color and pulse Doppler interrogation, were performed of the lower extremity deep veins from the inguinal ligament to the popliteal fossa. COMPARISON: [facility], PERIP VENOUS LOW EXTREM BI, 04/07/2018, 18:53. FINDINGS: There are nonocclusive filling defects in the popliteal vein consistent with deep venous thrombosis. The common femoral and superficial femoral veins are nor bridgette compressible, and free of intraluminal thrombus. IMPRESSION: Non-occlusive filling defect involving the left popliteal vein consistent with DVT. The result was discussed with Shani Campos in ER. Dictated by: Raphael Gant M.D. on 04/29/2018 at 16:46 Approved by: Raphael Gant M.D. on 04/29/2018 at 16:50 CTA chest: Radiologist's impression: [address] [address] [address] Scan Report Signed Patient: Mike Botello LMR#: [id number] : 1975Acct:[id number] Age/Sex: 42 / MDate of Service: 04/29/18 Loc: ED Accession Number: [id number] Procedure: CT angio chest PE protocol Ordering Provider: Shani Campos PROCEDURE: CT ANGIO CHEST PE PROTOCOL INDICATIONS: shortness of breath, hx clots, dvt on US TECHNIQUE: After the administration of intravenous contrast, 2 mm thick sections acquired from the pulmonary apices to the posterior costophrenic angles. 3-dimensional maximum intensity projection (MIP) coronal and sagittal reformats were then acquired through the thorax. For radiation dose reduction, the following was used: automated exposure control, adjustment of mA and/or kV according to patient size. COMPARISON: None. FINDINGS: Image quality: Suboptimal contrast timing for evaluation of distal emboli. Pulmonary arteries: Pulmonary arteries are normal in size, and demonstrate no intraluminal filling defects to suggest central pulmonary embolism. Distal emboli cannot be evaluated secondary to contrast opacification. Lungs and pleura: Lungs are clear. No pleural effusions or pneumothorax. Central and peripheral airways are patent. Mediastinum: Heart size is normal, without pericardial effusion. No mediastinal or hilar adenopathy. Thoracic aorta is normal in caliber and enhancement. Esophag us is normal in caliber, without hiatal hernia. Bones and chest wall: No suspicious bony lesions. Ribs and thoracic spine appear intact throughout. Thyroid gland is unremarkable. No axillary or supraclavicular adenopathy. Abdomen: Visualized upper abdominal solid organs appear normal in the early arterial phase of enhancement. IMPRESSION: 1. No central pulmonary emboli. Distal branches are suboptimally evaluated. 2. Lungs are clear. Dictated by: Mallorie Vazquez M.D. on 04/29/2018 at 16:38 Approved by: Mallorie Vazquez M.D. on 04/29/2018 at 16:40 ECG Data Attestation: I personally reviewed and interpreted this ECG as follows: Interpretation: SR. ventricular rate 79. no ectopy. NE 156. MDM Narrative Medical decision making narrative: The patient is a 42-year-old male with a long history of DVTs and PEs who is on warfarin. The patient developed a DVT while on Coumadin. Thus I spoke regarding the patient to Dr. Herron next several times as well as the on-call physician for his primary care group. It was agreed that the patient should start on Eliquis or Xarelto. I elected to use xarelto as his INR does not have to be as low as the transfer to Eliquis. I gave him instructions to stop taking his Coumadin and start taking Xarelto. His INR is 3.1 today. The patient was made an appointment for his primary care provider on Sunday afternoon and his primary care physician's office will call him tomorrow. The patient requested Ambien to help him sleep given his new DVT diagnosis, which I declined at this point time. I did give him a prescription of Vistaril. I discussed at length return precautions including shortness of breath or any acute concerns. The patient is had no questions or concerns upon discharge. I encouraged him to not take any long flights for the next few days, as he travels frequently for work. I also gave him a note off of work. No questions or concerns upon discharge. <Pau Herron, DO - Last Filed: 05/01/18 10:15> Lab Data Lab Results 04/29/18 04/29/18 04/29/18 Range/Units 15:25 15:25 15:25 WBC 6.5 (4.5-11.0) X10^3/uL RBC 4.73 (4.5-5.9) X10^6/uL Hgb 15.2 (13.5-17.5) g/dL Hct 44.2 (41-53) % MCV 93.5 (80-100) fL MCH 32.2 (26-34) PG MCHC 34.4 (30-36) % RDW 12.9 (11.6-14.8) % Plt Count 304 (150-400) X10^3/uL Neut % (Auto) 64.9 (50-75) % Lymph % (Auto) 26.3 (25-40) % [place] % (Auto) 7.1 (3-14) % Eos % (Auto) 0.7 L (2-4) % Baso % (Auto) 1.0 (0-2) % Neut # (Auto) 4200 (5928-2579) /uL Lymph # (Auto) 1700 (6084-4448) /uL [place] # (Auto) 500 (0-900) /uL Eos # (Auto) 0 (0-450) /uL Baso # (Auto) 100 (0-100) /uL PT 36.8 H (10.1-12.7) SECONDS INR 3.1 H (0.9-1.3) D-Dimer < 200 (<230) ng/mL Sodium 138 (137-145) mmol/L Potassium 3.9 (3.4-5.1) mmol/L Chloride 101 (98-107) mmol/L Carbon Dioxide 29 (22-32) mmol/L BUN 14 (9-20) mg/dL Creatinine 0.90 (0.66-1.25) mg/dL Estimated GFR > 60.0 (>60) mL/min BUN/Creatinine Ratio 15.6 (6-22) Glucose 95 (70-100) mg/dL Calcium 9.2 (8.4-10.2) mg/dL Total Bilirubin 0.6 (0.2-1.3) mg/dL AST 29 (17-59) IU/L ALT 34 (21-72) IU/L Alkaline Phosphatase 78 (38-126) U/L Total Protein 7.6 (6.3-8.2) g/dL Albumin 4.7 (3.5-5.0) g/dL Globulin 2.9 (1.7-4.1) g/dL Albumin/Globulin Ratio 1.6 (1.0-2.8) Discharge Plan Departure Patient Disposition: Home Clinical Impression: DVT (deep venous thrombosis) Qualifiers: DVT location: lower extremity Affected thrombotic vein of extremity: popliteal Chronicity: acute Laterality: left Qualified Code(s): I82.432 - Acute embolism and thrombosis of left popliteal vein Discharge Date/Time: 04/29/18 19:20 Interventions: ED Discharge Assessment Last Done: 04/29/18 19:20 Instructions: DI for Deep Vein Thrombosis Activity Restrictions/Additional Instructions: You have developed a blood clot in her left lower leg while on Coumadin. However your CT of her chest showed no clots. Please stop taking the Coumadin and start taking the Xarelto. I have arranged for an appointment with her primary care provider at 2:00pm on Sunday. Dr. Murillo is nurse will call you tomorrow for a check in. They are also starting a hematology referral for you. I spoke with Dr. Jimenez from your primary care practice. I have given you a small prescription of Vistaril to use for anxiety. Do not combine this with any type 1 antihistamines such as Benadryl. Come back to the ER for any acute concerns such as shortness of breath. Prescriptions: New Xarelto 15 mg tablet 15 mg PO BID 21 Days Qty: 42 RF: 0 hydroxyzine pamoate 50 mg capsule 50 mg PO TID-QID PRN (Reason: anxiety) Qty: 20 RF: 0 No Action warfarin 7.5 mg tablet 7.5 mg PO SUWE RF: 0 warfarin 5 mg tablet 5 mg PO 5XW RF: 0 lisinopril 5 mg tablet 5 mg PO DAILY RF: 0 Referrals: Pavel Elliott MD [Primary Care Provider] - Stand Alone Forms: Work Release Note <Pau Herron DO - Last Filed: 05/01/18 10:15> Cosign ED Attending Cosignature Attestation: I was immediately available in the department for consultation. Documentation has been reviewed. I agree with assessment and plan.
[2018-04-29 16:05] VITALS: BP 129/89; PULSE 78; RESP 15; O2SAT 98
--- NOTE | 2018-04-29 16:06 | DI.CT.S_ITS ---
PROCEDURE: CT ANGIO CHEST PE PROTOCOL INDICATIONS: shortness of breath, hx clots, dvt on US TECHNIQUE: After the administration of intravenous contrast, 2 mm thick sections acquired from the pulmonary apices to the posterior costophrenic angles. 3-dimensional maximum intensity projection (MIP) coronal and sagittal reformats were then acquired through the thorax. For radiation dose reduction, the following was used: automated exposure control, adjustment of mA and/or kV according to patient size. COMPARISON: None. FINDINGS: Image quality: Suboptimal contrast timing for evaluation of distal emboli. Pulmonary arteries: Pulmonary arteries are normal in size, and demonstrate no intraluminal filling defects to suggest central pulmonary embolism. Distal emboli cannot be evaluated secondary to contrast opacification. Lungs and pleura: Lungs are clear. No pleural effusions or pneumothorax. Central and peripheral airways are patent. Mediastinum: Heart size is normal, without pericardial effusion. No mediastinal or hilar adenopathy. Thoracic aorta is normal in caliber and enhancement. Esophagus is normal in caliber, without hiatal hernia. Bones and chest wall: No suspicious bony lesions. Ribs and thoracic spine appear intact throughout. Thyroid gland is unremarkable. No axillary or supraclavicular adenopathy. Abdomen: Visualized upper abdominal solid organs appear normal in the early arterial phase of enhancement. IMPRESSION: 1. No central pulmonary emboli. Distal branches are suboptimally evaluated. 2. Lungs are clear. Dictated by: Mallorie Vazquez M.D. on 04/29/2018 at 16:38 Approved by: Mallorie Vazquez M.D. on 04/29/2018 at 16:40
[2018-04-29] MEDS: LORazepam 0.5 MG TABLET 1 MG PO (16:26)
[2018-04-29 18:50] VITALS: BP 120/88; PULSE 88; RESP 16; O2SAT 97
== END 2018-04-29 19:20 | disposition home or self-care (01) ==
PROVIDERS: Emergency Medicine; Emergency Provider Nurse Practitioner Family; PCP Family Medicine
DX: I82.432 Acute embolism and thrombosis of left popliteal vein (principal); R06.02 Shortness of breath
CPT/HCPCS: 36591; 71275; 80053; 85025; 85379; 85610; 93005; 93971; 99282; 99285; Q9967

== ENCOUNTER 2019-11-29 10:34 | Emergency (ER) | payer OTHER, SELFPAY ==
[2019-11-29 10:42] VITALS: PULSE 92; O2SAT 99
[2019-11-29 10:47] VITALS: BP 142/89; PULSE 88; RESP 16; TEMP 37.1; O2SAT 99; BMI 30.5
--- NOTE | 2019-11-29 10:57 | DI.US.S_ITS ---
PROCEDURE: US SCROTUM INDICATIONS: SOFT LUMP RIGHT SCROTUM TECHNIQUE: Real-time scanning was performed of the scrotum and testicles, with image documentation. Color and pulse Doppler interrogation was performed of both testicles. COMPARISON: [facility], CR, XR HIP W PEL IF DONE RT 2V, 11/29/2019, 11:48. FINDINGS: Right: Testicle is normal in size at 4.6 x 2.3 x 2.5 cm, and homogenous in echotexture. Epididymis is normal in overall size. 2 simple cysts are seen involving the right epididymis that measure up to 4 mm. No hydrocele. A right-sided varicocele is seen. Overlying scrotal skin is normal in thickness. Left: Testicle is normal in size at 4.5 x 2.1 x 2.6 cm, and homogeneous in echotexture. Epididymis is normal in overall size and morphology. No hydrocele or varicoceles. Overlying scrotal skin is normal in thickness. Doppler: Color and pulse Doppler demonstrate normal and symmetric arterial flow in both testicles. IMPRESSION: Right-sided varicocele. Two simple cysts are noted involving the right epididymis that measure up to 4 mm. No intratesticular masses are seen. Dictated by: Ruperto Harris M.D. on 11/29/2019 at 11:34 Approved by: Ruperto Harris M.D. on 11/29/2019 at 11:36
[2019-11-29 11:13] LABS: Bacteria Urine None Seen; WBC Urine None Seen (0-5/HPF)
[2019-11-29 11:43] LABS: Culture Indicated Urine Cult Not Indicated; RBC Urine 0-1/HPF (0-5/HPF)
--- NOTE | 2019-11-29 11:53 | DI.RAD.S_ITS ---
PROCEDURE: XR HIP W PEL IF DONE RT 2V INDICATIONS: pain no injury TECHNIQUE: AP pelvis with lateral view(s) of the right hip(s). COMPARISON: None. FINDINGS: Bones: No fractures or dislocations. Pelvic ring appears intact. No suspicious bony lesions. No significant abnormality of the hip joints can be seen. Soft tissues: The visualized bowel gas pattern is normal. No suspicious soft tissue calcifications. Vasectomy clips can be seen. IMPRESSION: No significant plain film abnormality is seen. If it would be helpful for clinical management decision making, please consider a dedicated hip MRI for further evaluation (assuming that there is no contraindication). If there is strong clinical concern for a labral abnormality, this should be performed according to the arthrogram protocol. Dictated by: Ruperto Harris M.D. on 11/29/2019 at 11:14 Approved by: Ruperto Harris M.D. on 11/29/2019 at 11:14
--- NOTE | 2019-11-29 12:03 | ED_ITS ---
HPI - Male Genitourinary General Chief complaint: Urogenital-Male Stated complaint: PAINFUL RIGHT TESTICLE Time Seen by Provider: 11/29/19 10:47 Source: patient Mode of arrival: Ambulatory Limitations: no limitations History of Present Illness HPI Narrative: Patient is a 44-year-old male with history of DVT and PE on Coumadin who presents with right testicular pain ongoing since June of 2019. He says he feels a small mass on the right side but seems to be getting progressively painful. He also is having some right hip pain that seems to radiate to his medial thigh. He has had sciatic pain in the past this does not feel the same. He denies any weight loss or night sweats. He has no penile discharge. He also previously had a right inguinal hernia repair. MD Complaint: testicle pain and testicle swelling Onset (ago): month(s) Location: right testicle Radiation: right inguinal region Related Data Home Medications Medication Instructions Recorded Confirmed warfarin 5 mg tablet 5 mg PO 5XW tab 04/14/18 04/29/18 warfarin 7.5 mg tablet 7.5 mg PO SUWE tab 04/14/18 04/29/18 lisinopril 5 mg PO DAILY 04/29/18 04/29/18 Previous Rx's Medication Instructions Recorded hydroxyzine pamoate 50 mg PO TID-QID PRN #20 cap 04/29/18 hydrocodone-acetaminophen [[place]] 1 tab PO Q6H PRN #10 tab 11/29/19 Allergies Allergy/AdvReac Type Severity Reaction Status Date / Time No Known Drug Allergies Allergy Verified 04/29/18 15:06 Review of Systems Review of Systems Narrative: GENERAL: Denies chills, fatigue, malaise, fever, sweats, travel HEENT: Denies sinus pain, ear pain, sore throat, difficulty swallowing, neck pain RESPIRATORY: Denies dyspnea, cough, wheezing, hemoptysis, sputum. CARDIOVASCULAR: Denies chest pain, palpitations, orthopnea, edema GASTROINTESTINAL: Denies nausea, vomiting, abdominal pain, diarrhea, constipation, melena. : See HPI MUSCULOSKELETAL: Denies weakness, joint pain, or bony pain SKIN: No rash, no erythema, no pruritus NEUROLOGIC: Denies weakness, dizziness, headache, numbness, change in speech, confusion PSYCHIATRIC: No concerning psychosocial issues. 12 point review of systems is negative except for those stated above and HPI Patient History Medical History DVT (deep venous thrombosis) (Acute) Pulmonary embolism (Acute) Surgical History Status post right inguinal hernia repair (Acute) Social History Smoking Status: Never smoker Smoking Status: Never smoker alcohol intake frequency: a few times a week Alcohol type: beer Substance Use Type: does not use Exam Initial Vital Signs Initial Vital Signs: Vital Signs Pulse Rate 92 H 11/29/19 10:42 Pulse Oximetry 99 11/29/19 10:42 GENERAL: Well-appearing, well-nourished and in no acute distress. HEENT: Head atraumatic,EOMI, pupils reactive, face symmetric, moist mucous membranes CARDIOVASCULAR: Regular rate and rhythm without murmurs, rubs or gallops. RESPIRATORY: Breath sounds equal bilaterally, no wheezes rales or rhonchi. ABDOMEN: Soft, nontender. Normoactive bowel sounds all 4 quadrants. No guarding or rebound. : Nurse Bryon present for exam. Right testicle Soft mass like present superior pole nontender non erythematous not hard, no inguinal hernia present bilaterally. Left testicle is nontender EXTREMITIES: Normal range of motion, no clubbing or edema. Neurovascularly intact NEUROLOGICAL: Alert and oriented x4 SKIN: Warm, dry, no laceration, no petechiae, no rashes or lesions. Course Orders Ordered: ED Orders 11/29/19 10:57 US scrotum Stat 11/29/19 11:04 Urine Microscopic Stat 11/29/19 11:53 XR hip w pel if done RT 2V Stat Vital Signs Vital signs: Vital Signs - 8 hr 11/29/19 10:42 11/29/19 10:47 11/29/19 12:47 Temperature 98.7 F Pulse Rate 92 H 88 65 Respiratory Rate 16 16 Blood Pressure 142/89 H 123/73 Pulse Oximetry 99 99 100 MDM - Male Genitourinary Lab Data Attestation: I reviewed the patient's lab results. Labs: Lab Results 11/29/19 Range/Units 11:04 Urine RBC 0-1/hpf (0-5/HPF) Urine WBC None seen (0-5/HPF) Urine Bacteria None seen (None) Ur Culture Indicated? Cult not indicated Urine Dip Bedside Urine Glucose Negative Bedside Urine Bilirubin - Negative Bedside Urine Ketone - Negative Urine Specific [place] 1.015 Bedside Urine Occult Blood +/- Bedside Urine pH 6.0 Bedside Urine Protein - Negative Bedside Urine Urobilinogen - Negative Bedside Urine Nitrite - Negative Bedside Urine Leukocytes - Negative Esterase Imaging Data US scrotum: Radiologist's Impression: PROCEDURE: US SCROTUM INDICATIONS: SOFT LUMP RIGHT SCROTUM TECHNIQUE: Real-time scanning was performed of the scrotum and testicles, with image documentation. Color and pulse Doppler interrogation was performed of both testicles. COMPARISON: [facility], CR, XR HIP W PEL IF DONE RT 2V, 11/29/2019, 11:48. FINDINGS: Right: Testicle is normal in size at 4.6 x 2.3 x 2.5 cm, and homogenous in echotexture. Epididymis is normal in overall size. 2 simple cysts are seen involving the right epididymis that measure up to 4 mm. No hydrocele. A right-sided varicocele is seen. Overlying scrotal skin is normal in thickness. Left: Testicle is normal in size at 4.5 x 2.1 x 2.6 cm, and homogeneous in echotexture. Epididymis is normal in overall size and morphology. No hydrocele or varicoceles. Overlying scrotal skin is normal in thickness. Doppler: Color and pulse Doppler demonstrate normal and symmetric arterial flow in both testicles. IMPRESSION: Right-sided varicocele. Two simple cysts are noted involving the right epididymis that measure up to 4 mm. No intratesticular masses are seen. Dictated by: Ruperto Harris M.D. on 11/29/2019 at 11:34 Extremity x-ray #1: Radiologist's Impression: PROCEDURE: XR HIP W PEL IF DONE RT 2V INDICATIONS: pain no injury TECHNIQUE: AP pelvis with lateral view(s) of the right hip(s). COMPARISON: None. FINDINGS: Bones: No fractures or dislocations. Pelvic ring appears intact. No suspicious bony lesions. No significant abnormality of the hip joints can be seen. Soft tissues: The visualized bowel gas pattern is normal. No suspicious soft tissue calcifications. Vasectomy clips can be seen. IMPRESSION: No significant plain film abnormality is seen. If it would be helpful for clinical management decision making, please consider a dedicated hip MRI for further evaluation (assuming that there is no contraindication). If there is strong clinical concern for a labral abnormality, this should be performed according to the arthrogram protocol. Dictated by: Ruperto Harris M.D. on 11/29/2019 at 11:14 Approved by: Ruperto Harris M.D. on 11/29/2019 at 11:14 MDM Narrative Medical decision making narrative: Patient's ultrasound shows a cyst and varicocele no mass. He has an appointment with Urology in January. At this time I recommend supportive underwear and pain control. He is on warfarin. He does check his INR at home regularly the last 1 was 2.5 on November 20. At this time there is no indication to check his INR today. X-rays negative I do not believe his whole right hip pain is related to his testicular cyst. It seems to be muscular, x-ray is negative Discharge Plan Departure Patient Disposition: Home Clinical Impression: Right varicocele, Cyst of testis Discharge Date/Time: 11/29/19 13:11 Instructions: DI for Varicocele Activity Restrictions/Additional Instructions: *You have been diagnosed with varicocele and testicular cyst *What to do: At this time recommend supportive underwear mom with ibuprofen if needed. This is unlikely causing your right hip pain. Your right hip pain is probable musculoskeletal. *Continue to take medications as directed [place] 1 tablet every 4-6 hours if needed for severe pain *Follow up with your primary care provider in 2-3 days Follow-up with Urology either in January or you may call Dr. Sutton to see if he has sooner availability *Return to ER if you should have increased testicular pain or swelling or any new, worsening or concerning symptoms My narcotics Prescriptions: New hydrocodone-acetaminophen [[place]] 5-325 mg tablet 1 tab PO Q6H PRN (Reason: pain) Qty: 10 RF: 0 No Action warfarin 7.5 mg tablet 7.5 mg PO SUWE RF: 0 warfarin 5 mg tablet 5 mg PO 5XW RF: 0 lisinopril 5 mg tablet 5 mg PO DAILY RF: 0 hydroxyzine pamoate 50 mg capsule 50 mg PO TID-QID PRN (Reason: anxiety) Qty: 20 RF: 0 Referrals: Maya Thorne MD [Non-Staff] - Pavel Elliott MD [Primary Care Provider] - Lyla Sutton MD [Physician] - Stand Alone Forms: Work Release Note
[2019-11-29 12:47] VITALS: BP 123/73; PULSE 65; RESP 16; O2SAT 100
== END 2019-11-29 13:11 | disposition home or self-care (01) ==
PROVIDERS: Emergency Provider Emergency Medicine; PCP Family Medicine
DX: I86.1 Scrotal varices (principal); N44.2 Benign cyst of testis; Z79.01 Long term (current) use of anticoagulants
CPT/HCPCS: 73502; 76870; 81003; 81015; 99284

== ENCOUNTER → 2020-02-14 15:09 | Outpatient (CLI) | payer OTHER, SELFPAY ==
--- NOTE | 2020-02-14 15:11 | DI.MRI.S_ITS ---
PROCEDURE: MR LUMBAR SPINE WO CON INDICATIONS: Radiculopathy, lumbosacral region, LOW BACK PAIN TECHNIQUE: Noncontrast sagittal T1 spin echo and T2 fast echo, sagittal STIR, axial T1 and T2 fast spin echo through the lumbar spine. In cases with scoliosis, additional coronal T2 fast spin echo may be performed. COMPARISON: None. FINDINGS: Image quality: Excellent. Alignment and Curvature: There is trace retrolithesis of L5 on S1. Bone Marrow: Marrow is of normal overall signal. No acute vertebral body compression fractures. Spinal Cord: Conus medullaris terminates at the T12 level. Visualized cord demonstrates normal signal and size. Paraspinous Soft Tissues: No paravertebral masses. Severe dessication at L5-S1, moderate L3-4, minimal to mild throughout the remainder of the spine. L1-L2: No disc bulge, spinal stenosis or foraminal narrowing. Minimal epidural lipomatosis. L2-L3: Mild disc bulge, with minimal canal effacement. Minimal to mild bilateral foraminal narrowing. Mild facet hypertrophy. Minimal epidural lipomatosis. L3-L4: Mild disc bulge, with minimal canal effacement. Minimal bilateral foraminal narrowing. Mild facet hypertrophy. Minimal epidural lipomatosis. L4-L5: Mild disc bulge, with minimal canal effacement. Mild bilateral foraminal narrowing. Mild facet hypertrophy. L5-S1: Mild asymmetric, left paracentral disc bulge. There is mild compromise of the left lateral recess. Increased T2 signal is present in the posterior disc consistent with annular fissure. Mild to moderate left and minimal right foraminal narrowing. Mild facet hypertrophy.. IMPRESSION: 1. Early degenerative changs with foraminal narrowing most notable at L5-S1 secondary to facet arthopathy. Dictated by: Mallorie Vazquez M.D. on 02/16/2020 at 10:54 Approved by: Mallorie Vazquez M.D. on 02/16/2020 at 11:11
== END ==
PROVIDERS: PCP Internal Medicine; Referring Provider Chiropractor Rehabilitation; Visit Provider Chiropractor Rehabilitation
DX: M54.5 Low back pain (principal); M47.27 Other spondylosis with radiculopathy, lumbosacral region; M48.07 Spinal stenosis, lumbosacral region
CPT/HCPCS: 72148

== ENCOUNTER 2020-04-30 13:40 | Emergency (ER) | payer OTHER, SELFPAY ==
[2020-04-30 13:48] VITALS: BP 130/81; PULSE 80; RESP 18; TEMP 36.3; O2SAT 98; BMI 30.6
--- NOTE | 2020-04-30 13:56 | DI.RAD.S_ITS ---
PROCEDURE: XR CHEST 1V INDICATIONS: Chest pain TECHNIQUE: One view of the chest was acquired. COMPARISON: None. FINDINGS: Surgical changes and devices: None. Lungs and pleura: Lungs are clear. No pleural effusions or pneumothorax. Mediastinum: Mediastinal contours appear normal. Heart size is normal. Bones and chest wall: No suspicious bony lesions. Overlying soft tissues appear unremarkable. IMPRESSION: No acute cardiopulmonary process demonstrated radiographically. Dictated by: Neal Rodriguez M.D. on 04/30/2020 at 14:34 Approved by: Neal Rodriguez M.D. on 04/30/2020 at 14:36
--- NOTE | 2020-04-30 14:21 | DI.CT.S_ITS ---
PROCEDURE: CT HEAD/BRAIN WO CON INDICATIONS: tingling / numbness on right side of face x 3 weeks. TECHNIQUE: Noncontrast 4.5 mm thick angled axial sections acquired from the foramen magnum to the vertex, with coronal and sagittal reformats. For radiation dose reduction, the following was used: automated exposure control, adjustment of mA and/or kV according to patient size. COMPARISON: None. FINDINGS: Image quality: Excellent. CSF spaces: Basal cisterns are patent. No extra-axial fluid collections. Ventricles are normal in size and shape. Brain: No midline shift. No intracranial masses or hemorrhage. [place]-white matter interface is normal. Skull and face: Calvarium and visualized facial bones are intact, without suspicious lesions. Sinuses: Visualized sinuses and mastoids are clear. IMPRESSION: No acute intracranial finding. Dictated by: Neal Rodriguez M.D. on 04/30/2020 at 14:33 Approved by: Neal Rodriguez M.D. on 04/30/2020 at 14:34
[2020-04-30 14:28] LABS: Add Manual Diff / Slide Review NO; Basophils Absolute Auto 100 /uL (0-100); Basophils Percent Auto 0.9 % (0-2); Eosinophils Absolute Auto 200 /uL (0-450); Eosinophils Percent Auto 2.3 % (2-4); Hematocrit 45.4 % (41-53); Hemoglobin 15.5 g/dL (13.5-17.5); Lymphocytes Absolute Auto 2600 /uL (1100-4500); Lymphocytes Percent Auto 36.8 % (25-40); Mean Corpuscular HGB Conc 34.1 % (30-36); Mean Corpuscular Hemoglobin 31.9 PG (26-34); Mean Corpuscular Volume 93.4 fL (80-100); Monocytes Absolute Auto 700 /uL (0-900); Monocytes Percent Auto 9.5 % (3-14); Neutrophils Absolute Auto 3500 /uL (1500-7000); Neutrophils Percent Auto 50.5 % (50-75); Platelet Count 237 X10^3/uL (150-400); Red Blood Cell Count 4.86 X10^6/uL (4.5-5.9); Red Cell Distribution Width 12.6 % (11.6-14.8)
[2020-04-30 14:34] LABS: INR 2.3 (0.9-1.3); Prothrombin Time 25.4 SECONDS (10.1-12.7)
[2020-04-30 14:37] LABS: Alanine Aminotransferase 27 IU/L (<50); Albumin 4.8 g/dL (3.5-5.0); Albumin Globulin Ratio 1.6 (1.0-2.8); Alkaline Phosphatase 82 U/L (38-126); Aspartate Aminotransferase 30 IU/L (17-59); BUN Creatinine Ratio 16.7 (6-22); Bilirubin Total 0.5 mg/dL (0.2-1.3); Blood Urea Nitrogen 14 mg/dL (9-20); Calcium 9.5 mg/dL (8.4-10.2); Carbon Dioxide 28 mmol/L (22-32); Chloride 101 mmol/L (98-107); Creatine Kinase 130 U/L (55-170); Estimated Glomerular Filt Rate > 60.0 mL/min (>60); Glucose 97 mg/dL (70-100); HEMOLYSIS < 15 (0-50); Lipase 92 U/L (23-300); PTT Partial Thromboplastin Tim 39 SECONDS (26.4-36.2); Potassium 4.2 mmol/L (3.4-5.1); Sodium 137 mmol/L (137-145); Total Protein 7.8 g/dL (6.3-8.2)
[2020-04-30 14:49] LABS: Troponin I < 0.012 ng/mL (0.01-0.034)
[2020-04-30 14:52] LABS: CKMB % Relative Index 0.6 % (1.5-5.0); Creatine Kinase MB 0.79 ng/mL (<2.37)
[2020-04-30 15:51] VITALS: PULSE 78; RESP 18; O2SAT 100
[2020-04-30 16:00] VITALS: PULSE 79; RESP 17; O2SAT 99
[2020-04-30 16:02] VITALS: BP 114/73; PULSE 77; RESP 13; O2SAT 99
--- NOTE | 2020-04-30 16:06 | ED.NEUROSD ---
HPI - Neuro Symptoms/Deficit General Chief Complaint: Neuro Symptoms/Deficit Stated Complaint: DIFFICULTY WITH EYE LID ON RIGHT SIDE/NUMBNESS Time Seen by Provider: 04/30/20 16:06 Source: patient and family () Mode of arrival: Ambulatory Limitations: no limitations History of Present Illness HPI Narrative: This is a 44-year-old male who comes in with complaint of 3 weeks of difficulty lifting the eyelid on the right side and tingling numbness of his right temporal cheek area. Patient states symptoms have not been progressing but have not been improving. He attempted to call his physician on Sunday he was contacted today by the office and was told to come to the emergency department. Patient denies any fevers, denies any severe headaches. He states he occasional has mild headaches. He has noted that when he sneezes, winces or blinks that the right eyelid will be slower to open than the left. Aleve did seem like it sticks but will open. He has also noted some tingling numbness of his right jaw. He denies any vision changes. No pain of the eye. No redness or injection. No dysarthria. No numbness, weakness or tingling that is new in his other extremities. He states he has chronic tingling in his bilateral lower extremities with known bulging discs and chronic foot drag on the left. No shortness of breath, no chest pain or pressure. No nausea no vomiting no rashes or skin changes. Patient has undefined clotting disorder and is on warfarin he has had multiple DVTs, PE but no prior CVA. Patient has had a history of inguinal hernia repair, vasectomy, cholecystectomy and had multiple angiographies for evaluation. He has also had an IVC filter placed and removed. He denies any allergies. No tobacco, no alcohol or illicit. He is accompanied by his . He follows with Dr. Montez for PCP. On Anticoagulants: Yes (coumadin) Related Data Home Medications Medication Instructions Recorded Confirmed warfarin 5 mg tablet 5 mg PO 5XW tab 04/14/18 04/29/18 warfarin 7.5 mg tablet 7.5 mg PO SUWE tab 04/14/18 04/29/18 lisinopril 5 mg PO DAILY 04/29/18 04/29/18 Previous Rx's Medication Instructions Recorded hydroxyzine pamoate 50 mg PO TID-QID PRN #20 cap 04/29/18 hydrocodone-acetaminophen [[place]] 1 tab PO Q6H PRN #10 tab 11/29/19 Allergies Allergy/AdvReac Type Severity Reaction Status Date / Time No Known Drug Allergies Allergy Verified 04/30/20 13:48 Review of Systems Review of Systems ROS Unobtainable: All systems reviewed & are unremarkable except as noted in HPI and below Hematologic/Lymphatic On Anticoagulants: Yes (coumadin) Patient History Medical History (Updated 04/30/20 @ 16:41 by Shani Cano DO) DVT (deep venous thrombosis) Pulmonary embolism Surgical History Status post right inguinal hernia repair Social History Smoking Status: Never smoker Smoking Status: Never smoker alcohol intake frequency: a few times a week Alcohol type: beer Substance Use Type: does not use Exam Narrative Exam Narrative: GEN: well nourished, well appearing male, alert and oriented x 3, patient appears to be in mild distress. HEENT: Atraumatic, pupils are equal round reactive to light, extraocular movements are intact, nares are clear, throat is clear without any exudates, erythema, tonsillar enlargement or uvular deviation, no facial droop. General: no globe trauma Eyelids: normal inspection. Patient right upper upper eyelid but it does lag slightly in comparison to the left. A twitch or spasm is appreciated. Lower lid does not appear weaker and patient is able to close his eyes against resistance. Conjunctiva/Sclera: normal inspection EOM: intact, no palsy/entrapment Pupils: PERRL, normal accomadation, pupil normalNo carotid bruits, pulses are equal in upper and lower extremities LUNGS:Lungs clear to auscultation, no wheezes, rales, crackles, chest moves symmetrically ABD:bowel sounds normal, soft, non-tender, no guarding, rebound, rigidity, no masses noted, no hepatosplenomegaly MSCL: Non-tender, no muscle atrophy, muscles strength 5/5 upper and lower extremities, full range of motion NEURO:CN 2-12 intact, sensation normal. finger nose finger test normal, heel worthy test normal SKIN: Rash, erythema or skin changes. No vesicles. Initial Vital Signs Initial Vital Signs: Vital Signs Temperature 97.3 F L 04/30/20 13:48 Pulse Rate 80 04/30/20 13:48 Respiratory Rate 18 04/30/20 13:48 Blood Pressure 130/81 04/30/20 13:48 Pulse Oximetry 98 04/30/20 13:48 Scores NIH Stroke Scale Level of Conciousness: Alert, keenly responsive Ask month/age: Answers both questions correctly. Open/close eyes, close hand: Performs both tasks correctly Best gaze horizontal: Normal Visual fitzgerald: No visual loss Facial palsy: Normal symetrical movement Left arm drift: No drift for full 10 sec Right arm drift: No drift for full 10 sec Left leg drift: No drift for full 5 sec Right leg drift: No drift for full 5 sec Limb ataxia: Absent Sensory on face/arms/legs: Normal, no sensory loss Best language: No aphasia, normal Dysarthria: Normal Extinction or inattention: No abnormality Total NIH Stroke scale score: 0 Course Orders Ordered: ED Orders 04/30/20 13:56 XR chest 1V Stat EKG-12 Lead Stat 04/30/20 14:18 Complete Blood Count AUTO DIFF Stat Comprehensive Metabolic Panel Stat Lipase Stat Partial Thromboplastin Time Stat Prothrombin Time INR Stat Troponin & CK Cardiac Panel Stat 04/30/20 14:21 CT head/brain wo con Stat Vital Signs Vital signs: Vital Signs - 8 hr 04/30/20 13:48 04/30/20 15:51 04/30/20 16:00 Temperature 97.3 F L Pulse Rate 80 78 79 Respiratory Rate 18 18 17 Blood Pressure 130/81 Pulse Oximetry 98 100 99 04/30/20 16:02 04/30/20 16:30 Temperature Pulse Rate 77 75 Respiratory Rate 13 20 Blood Pressure 114/73 124/75 Pulse Oximetry 99 97 MDM - Neuro Symptoms/Deficit Lab Data Attestation: I reviewed the patient's lab results. Result diagrams: 04/30/20 14:18 04/30/20 14:18 Labs: Lab Results 04/30/20 04/30/20 04/30/20 Range/Units 14:18 14:18 14:18 WBC 7.0 (4.5-11.0) X10^3/uL RBC 4.86 (4.5-5.9) X10^6/uL Hgb 15.5 (13.5-17.5) g/dL Hct 45.4 (41-53) % MCV 93.4 (80-100) fL MCH 31.9 (26-34) PG MCHC 34.1 (30-36) % RDW 12.6 (11.6-14.8) % Plt Count 237 (150-400) X10^3/uL Neut % (Auto) 50.5 (50-75) % Lymph % (Auto) 36.8 (25-40) % [place] % (Auto) 9.5 (3-14) % Eos % (Auto) 2.3 (2-4) % Baso % (Auto) 0.9 (0-2) % Neut # (Auto) 3500 (6085-2417) /uL Lymph # (Auto) 2600 (0598-0813) /uL [place] # (Auto) 700 (0-900) /uL Eos # (Auto) 200 (0-450) /uL Baso # (Auto) 100 (0-100) /uL PT 25.4 H (10.1-12.7) SECONDS INR 2.3 H (0.9-1.3) APTT 39 H (26.4-36.2) SECONDS Sodium 137 (137-145) mmol/L Potassium 4.2 (3.4-5.1) mmol/L Chloride 101 (98-107) mmol/L Carbon Dioxide 28 (22-32) mmol/L BUN 14 (9-20) mg/dL Creatinine 0.84 (0.66-1.25) mg/dL Estimated GFR > 60.0 (>60) mL/min BUN/Creatinine Ratio 16.7 (6-22) Glucose 97 (70-100) mg/dL Calcium 9.5 (8.4-10.2) mg/dL Total Bilirubin 0.5 (0.2-1.3) mg/dL AST 30 (17-59) IU/L ALT 27 (<50) IU/L Alkaline Phosphatase 82 (38-126) U/L Total Creatine Kinase 130 (55-170) U/L CK-MB (CK-2) 0.79 (<2.37) ng/mL CK-MB (CK-2) Rel Index 0.6 L (1.5-5.0) % Troponin I < 0.012 (0.01-0.034) ng/mL Total Protein 7.8 (6.3-8.2) g/dL Albumin 4.8 (3.5-5.0) g/dL Globulin 3.0 (1.7-4.1) g/dL Albumin/Globulin Ratio 1.6 (1.0-2.8) Lipase 92 (23-300) U/L Imaging Data CT scan - head: Radiologist's Impression: [address] [id number] Scan ReportSigned Patient: Mike Botello LMR#: [id number]: 1975Acct:[id number]/Sex: 44 / MDate of Service: 04/30/20Loc: EDAccession Number: [id number] Procedure: CT head/brain wo con Ordering Provider: Davey Gao PROCEDURE: CT HEAD/BRAIN WO CON INDICATIONS: tingling / numbness on right side of face x 3 weeks. TECHNIQUE: Noncontrast 4.5 mm thick angled axial sections acquired from the foramen magnum to the vertex, with coronal and sagittal reformats. For radiation dose reduction, the following was used: automated exposure control, adjustment of mA and/or kV according to patient size. COMPARISON: None. FINDINGS: Image quality: Excellent. CSF spaces: Basal cisterns are patent. No extra-axial fluid collections. Ventricles are normal in size and shape. Brain: No midline shift. No intracranial masses or hemorrhage. [place]-white matter interface is normal. Skull and face: Calvarium and visualized facial bones are intact, without suspicious lesions. Sinuses: Visualized sinuses and mastoids are clear. IMPRESSION: No acute intracranial finding. Dictated by: Neal Rodriguez M.D. on 04/30/2020 at 14:33 Approved by: Neal Rodriguez M.D. on 04/30/2020 at 14:34 Chest x-ray: Radiologist's Impression: [address] [id number] ReportSigned Patient: Mike Botello LMR#: [id number]: 1975Acct:[id number]/Sex: 44 / MDate of Service: 04/30/20Loc: EDAccession Number: [id number] Procedure: XR chest 1V Ordering Provider: Shani Cano D.O. PROCEDURE: XR CHEST 1V INDICATIONS: Chest pain TECHNIQUE: One view of the chest was acquired. COMPARISON: None. FINDINGS: Surgical changes and devices: None. Lungs and pleura: Lungs are clear. No pleural effusions or pneumothorax. Mediastinum: Mediastinal contours appear normal. Heart size is normal. Bones and chest wall: No suspicious bony lesions. Overlying soft tissues appear unremarkable. IMPRESSION: No acute cardiopulmonary process demonstrated radiographically. Dictated by: Neal Rodriguez M.D. on 04/30/2020 at 14:34 Approved by: Neal Rodriguez M.D. on 04/30/2020 at 14:36 ECG Data Attestation: I personally reviewed and interpreted this ECG as follows: Interpretation: NSR, rate of 73, pr of 156, qrs of 84, qtc of 396. No acute ST changes appreciated. Patient has prior from 04/29/2018 with limb leads reversed that on 04/07/2018 appears similar. MDM Narrative Medical decision making narrative: This is a 44-year-old male with history significant for multiple DVT, PE and a undefined clotting disorder who is chronically on warfarin. Patient is fully anticoagulated today. He has had 3 weeks of noting that his right eyelid seems to stick down and slowly reopen whenever he sneezes, winces or bleeds. He has also describes some numbness tingling of that right jaw and temporal region. Patient has not had any other acute neurologic changes. Head CT, chest x-ray EKG and labs do not show any acute cause for his symptoms. We discussed a wide differential he does have a daughter who has MS, we did discuss this is a possibility but lower on my suspicion. He is recommended to follow up with his primary care. Patient and I also discussed Penny's palsy. He defers any treatment at this time. We did discuss that he can use eyedrops and tape his eye closed in the evening. We also discussed other potential causes such as supraventricular nerve palsies, stroke which seems unlikely, blepharospasm and other potential causes. Patient feels comfortable returning home and following up with primary care for further evaluation and possibly Neurology if symptoms continue. Discharge Plan Departure Patient Disposition: Home Clinical Impression: Facial tingling Activity Restrictions/Additional Instructions: Follow up with your physician for recheck. I suspect you may have a very slight case of Penny's palsy causing her symptoms today. There are other potential causes of your symptoms, discussed with your physician they may wish for further evaluation. Continue home medications as prescribed. Return to the ER for fevers, severe headaches, new numbness, tingling weakness difficulty with speech, acute neurologic changes, loss of vision, severe eye pain, discharge or other new or concerning symptoms. Prescriptions: No Action warfarin 7.5 mg tablet 7.5 mg PO SUWE RF: 0 warfarin 5 mg tablet 5 mg PO 5XW RF: 0 hydrocodone-acetaminophen [[place]] 5-325 mg tablet 1 tab PO Q6H PRN (Reason: pain) Qty: 10 RF: 0 lisinopril 5 mg tablet 5 mg PO DAILY RF: 0 hydroxyzine pamoate 50 mg capsule 50 mg PO TID-QID PRN (Reason: anxiety) Qty: 20 RF: 0 Referrals: Jus Montez MD [Primary Care Provider] -
[2020-04-30 16:30] VITALS: BP 124/75; PULSE 75; RESP 20; O2SAT 97
== END 2020-04-30 16:53 | disposition home or self-care (01) ==
PROVIDERS: Emergency Provider Emergency Medicine; PCP Internal Medicine
DX: R20.2 Paresthesia of skin (principal)
CPT/HCPCS: 36415; 70450; 71045; 80053; 82550; 82553; 83690; 84484; 85025; 85610; 85730; 93005; 93010; 99284

== ENCOUNTER 2020-08-11 09:20 | Emergency (ER) | payer OTHER, SELFPAY ==
[2020-08-11 09:28] VITALS: BP 125/74; PULSE 68; RESP 18; TEMP 36.6; O2SAT 99
[2020-08-11 13:33] LABS: Add Manual Diff / Slide Review NO; Basophils Absolute Auto 100 /uL (0-100); Basophils Percent Auto 0.9 % (0-2); Eosinophils Absolute Auto 100 /uL (0-450); Eosinophils Percent Auto 2.1 % (2-4); Hematocrit 44.6 % (41-53); Hemoglobin 15.4 g/dL (13.5-17.5); Lymphocytes Absolute Auto 2000 /uL (1100-4500); Lymphocytes Percent Auto 34.2 % (25-40); Mean Corpuscular HGB Conc 34.5 % (30-36); Mean Corpuscular Hemoglobin 32.6 PG (26-34); Mean Corpuscular Volume 94.4 fL (80-100); Monocytes Absolute Auto 400 /uL (0-900); Monocytes Percent Auto 7.1 % (3-14); Neutrophils Absolute Auto 3300 /uL (1500-7000); Neutrophils Percent Auto 55.7 % (50-75); Platelet Count 217 X10^3/uL (150-400); Red Blood Cell Count 4.72 X10^6/uL (4.5-5.9); Red Cell Distribution Width 13.4 % (11.6-14.8)
[2020-08-11 13:36] LABS: INR 2.7 (0.9-1.3); Prothrombin Time 31.3 SECONDS (10.1-12.7)
[2020-08-11 13:39] LABS: PTT Partial Thromboplastin Tim 42 SECONDS (26.4-36.2)
[2020-08-11 13:40] LABS: BUN Creatinine Ratio 18.2 (6-22); Blood Urea Nitrogen 14 mg/dL (9-20); Calcium 9.4 mg/dL (8.4-10.2); Carbon Dioxide 27 mmol/L (22-32); Chloride 103 mmol/L (98-107); Estimated Glomerular Filt Rate > 60.0 mL/min (>60); Glucose 101 mg/dL (70-100); HEMOLYSIS < 15 (0-50); Potassium 4.4 mmol/L (3.4-5.1); Sodium 136 mmol/L (137-145)
--- NOTE | 2020-08-11 15:11 | ED.RECABL ---
HPI - Recheck/Abnormal Lab/Rx General Chief Complaint: Recheck/Abnormal Lab/Rx Stated Complaint: ongoing issues with a hernia Time Seen by Provider: 08/11/20 15:01 Source: patient Mode of arrival: Ambulatory Limitations: no limitations History of Present Illness HPI narrative: This is a 45-year-old male comes emergency department with concern for hernia. Patient states he was told he had a hernia by Dr. Eubanks in the past. Patient states that he has had continuing pain in that area which is now radiating to his abdomen. He has not had any fevers but felt a little sweaty today. He has not any nausea or vomiting. He has had normal bowel movements with no black or blood. He has had no issues with urination, no dysuria, sense of urgency or discharge. States the pain radiates little bit to his testicle. Patient does have a prior hernia repair on the right. He has been told he has a small hernia on the left by Dr. Eubanks. Related Data Home Medications Medication Instructions Recorded Confirmed warfarin 5 mg tablet 5 mg PO 5XW tab 04/14/18 04/29/18 warfarin 7.5 mg tablet 7.5 mg PO SUWE tab 04/14/18 04/29/18 lisinopril 5 mg tablet 5 mg PO DAILY 04/29/18 04/29/18 Previous Rx's Medication Instructions Recorded hydroxyzine pamoate 50 mg capsule 50 mg PO TID-QID PRN #20 cap 04/29/18 hydrocodone 5 mg-acetaminophen 325 1 tab PO Q6H PRN #10 tab 11/29/19 mg tablet ([place]) hydrocodone 5 mg-acetaminophen 325 1 tab PO Q6H PRN #10 tab 08/11/20 mg tablet Allergies Allergy/AdvReac Type Severity Reaction Status Date / Time No Known Drug Allergies Allergy Verified 04/30/20 13:48 Review of Systems Review of Systems ROS Unobtainable: All systems reviewed & are unremarkable except as noted in HPI and below Patient History Medical History (Updated 08/11/20 @ 16:22 by Shani Cano DO) DVT (deep venous thrombosis) Pulmonary embolism Surgical History Status post right inguinal hernia repair Social History Smoking Status: Never smoker Smoking Status: Never smoker alcohol intake frequency: a few times a week Alcohol type: beer Substance Use Type: does not use Exam Narrative Exam Narrative: GENERAL: Alert and oriented x three, well-nourished male in mild distress. HEENT: Head normocephalic, atraumatic, EOMI, pupils reactive, face symmetric, moist mucous membranes NECK: Supple, full range of motion CARDIOVASCULAR: Regular rate and rhythm without murmurs, rubs or gallops. RESPIRATORY: Breath sounds equal bilaterally, no wheezes rales or rhonchi. ABDOMEN: Soft, nontender. Normoactive bowel sounds all 4 quadrants. No guarding or rebound, rigidity, patient has a small mass at the left inguinal region which is not reducible on palpation. Mildly tender. Does not worsen with cough. : No CVA tenderness EXTREMITIES: Normal range of motion, no clubbing or edema. Neurovascularly intact NEUROLOGICAL: Cranial nerves II through XII grossly intact. Moving all extremities SKIN: Warm, dry, no petechiae, no rashes or lesions. Initial Vital Signs Initial Vital Signs: Vital Signs Temperature 97.8 F 08/11/20 09:28 Pulse Rate 68 08/11/20 09:28 Respiratory Rate 18 08/11/20 09:28 Blood Pressure 125/74 08/11/20 09:28 Pulse Oximetry 99 08/11/20 09:28 Course Orders Ordered: ED Orders 08/11/20 13:22 CHEM7 [Basic Metabolic Panel] Stat Complete Blood Count AUTO DIFF Stat Partial Thromboplastin Time Stat Prothrombin Time INR Stat 08/11/20 15:10 US abdomen limited Stat Vital Signs Vital signs: Vital Signs - 8 hr 08/11/20 16:35 Pulse Rate 63 Respiratory Rate 18 Blood Pressure 114/72 Pulse Oximetry 98 MDM - Recheck/Abnormal Lab/Rx Lab Data Result diagrams: 08/11/20 13:22 08/11/20 13:22 Labs: Lab Results 08/11/20 08/11/20 08/11/20 Range/Units 13:22 13:22 13:22 WBC 6.0 (4.5-11.0) X10^3/uL RBC 4.72 (4.5-5.9) X10^6/uL Hgb 15.4 (13.5-17.5) g/dL Hct 44.6 (41-53) % MCV 94.4 (80-100) fL MCH 32.6 (26-34) PG MCHC 34.5 (30-36) % RDW 13.4 (11.6-14.8) % Plt Count 217 (150-400) X10^3/uL Neut % (Auto) 55.7 (50-75) % Lymph % (Auto) 34.2 (25-40) % Carver % (Auto) 7.1 (3-14) % Eos % (Auto) 2.1 (2-4) % Baso % (Auto) 0.9 (0-2) % Neut # (Auto) 3300 (7262-7584) /uL Lymph # (Auto) 2000 (4124-7230) /uL Carver # (Auto) 400 (0-900) /uL Eos # (Auto) 100 (0-450) /uL Baso # (Auto) 100 (0-100) /uL PT 31.3 H (10.1-12.7) SECONDS INR 2.7 H (0.9-1.3) APTT 42 H (26.4-36.2) SECONDS Sodium 136 L (137-145) mmol/L Potassium 4.4 (3.4-5.1) mmol/L Chloride 103 (98-107) mmol/L Carbon Dioxide 27 (22-32) mmol/L BUN 14 (9-20) mg/dL Creatinine 0.77 (0.66-1.25) mg/dL Estimated GFR > 60.0 (>60) mL/min BUN/Creatinine Ratio 18.2 (6-22) Glucose 101 H (70-100) mg/dL Calcium 9.4 (8.4-10.2) mg/dL Urine Dip Bedside Urine Glucose Negative Bedside Urine Bilirubin - Negative Bedside Urine Ketone - Negative Urine Specific [place] 1.020 Bedside Urine Occult Blood - Negative Bedside Urine pH 7 Bedside Urine Protein - Negative Bedside Urine Urobilinogen - Negative Bedside Urine Nitrite - Negative Bedside Urine Leukocytes - Negative Esterase Imaging Data US - abdomen: Radiologist's Impression: [address] [id number] ReportSigned Patient: Mike Botello LMR#: [id number]: 1975Acct:[id number]/Sex: 45 / MDate of Service: 08/11/20Loc: EDAccession Number: [id number] Procedure: US abdomen limited Ordering Provider: Shani Cano D.O. PROCEDURE: US ABDOMEN LIMITED INDICATIONS: ATTENTION LEFT GROIN, HERNIA TECHNIQUE: Real-time focused scanning was performed of the inguinal region, with image documentation. COMPARISON: [facility], US, US SCROTUM, 11/29/2019, 11:36. Prior scrotal ultrasound.. FINDINGS: Scanning over the left groin region reveals no definitive diagnosis of inguinal hernia. IMPRESSION: No inguinal hernia found. Dedicated pelvic CT scanning may become necessary utilizing oral contrast and scanning during Valsalva maneuver in an attempt to elicit groin hernia during scanning. Dictated by: Sandeep Castellanos M.D. on 08/11/2020 at 16:04 Approved by: Sandeep Castellanos M.D. on 08/11/2020 at 16:05 [facility] Narrative Medical decision making narrative: 45-year-old male comes emergency department course concern of hernia. Patient does not have any obstructive symptoms. Labs are reassuring, urine does not show any acute changes. Patient does have pain that sometimes radiates to the testicle on exam I can feel what like a very small left inguinal hernia. It is not easily reducible and is only mildly tender to palpation. Patient did wish to did void CT scanning and radiation if possible. Ultrasound was obtained which did not show the hernia but I still suspect patient may have a small 1 it may have self reduced. Patient defers CT scanning it was offered. He has follow-up that he can set up with Dr. Eubanks who is his general surgeon. He is going to contact her and given a short term pain prescription. Return precautions discussed. All questions answered. Discharge Plan Departure Patient Disposition: Home Clinical Impression: Abdominal pain Instructions: DI for Abdominal Pain-Adult Activity Restrictions/Additional Instructions: Follow up with Dr. Eubanks for recheck. Call today or tomorrow for an appointment. I do suspect to have a left inguinal hernia and I am able to palpate a small area on your exam. This was not clearly visualized on ultrasound. Take pain medication as prescribed. This medication can make you sleepy do not drive, perform hazardous activities or make any major decisions while taking it. This medication will make you constipated please take a stool softener once to twice daily until stools are soft and regular. Prescription sent to [facility]. Please return for fevers, new or increasing abdominal pain, vomiting or persistent nausea, black or bloody stools, appear unable to have a bowel movement, if you are not passing gas, difficulty with urination, painful urination, or rapidly worsening testicular pain. Prescriptions: New hydrocodone-acetaminophen 5-325 mg tablet 1 tab PO Q6H PRN (Reason: pain) Qty: 10 RF: 0 No Action warfarin 7.5 mg tablet 7.5 mg PO SUWE RF: 0 warfarin 5 mg tablet 5 mg PO 5XW RF: 0 hydrocodone-acetaminophen [[place]] 5-325 mg tablet 1 tab PO Q6H PRN (Reason: pain) Qty: 10 RF: 0 lisinopril 5 mg tablet 5 mg PO DAILY RF: 0 hydroxyzine pamoate 50 mg capsule 50 mg PO TID-QID PRN (Reason: anxiety) Qty: 20 RF: 0 Referrals: Jus Montez MD [Primary Care Provider] - Charissa Eubanks MD [Non-Staff] -
[2020-08-11 16:35] VITALS: BP 114/72; PULSE 63; RESP 18; O2SAT 98
== END 2020-08-11 16:36 | disposition home or self-care (01) ==
PROVIDERS: Emergency Provider Emergency Medicine; PCP Internal Medicine
DX: R10.9 Unspecified abdominal pain (principal); N50.812 Left testicular pain
CPT/HCPCS: 36415; 76705; 80048; 81003; 85025; 85610; 85730; 99284

== ENCOUNTER → 2021-02-14 09:24 | Outpatient (CLI) | payer OTHER, SELFPAY ==
[2021-02-14 11:37] LABS: COVID19 -Nasal RAPID Negative (Negative)
== END ==
PROVIDERS: PCP Internal Medicine; Visit Provider Physical Medicine & Rehabilitation
DX: Z20.822 Contact with and (suspected) exposure to COVID-19 (principal)
CPT/HCPCS: 87635; C9803

== ENCOUNTER 2021-02-15 08:05 | Outpatient (CLI) | payer OTHER, SELFPAY ==
[2021-02-15] VITALS (8 sets, daily range): BP systolic 121–156; BP diastolic 65–99; PULSE 79–94; RESP 13–18; TEMP 36.3; O2SAT 97–100
--- NOTE | 2021-02-15 08:31 | DI.RAD.S_ITS ---
PROCEDURE: PAIN SI JOINT INJECTION INDICATIONS: SACROILIAC DISORDER COMPARISON: [facility], CR, XR HIP W PEL IF DONE RT 2V, 11/29/2019, 11:48. FINDINGS: Fluoroscopic spot filming was performed to verify placement of spinal needle along the inferior aspect of the right sacroiliac joint. Appropriate location(s) of the needle tip(s) was confirmed by injection of iodinated contrast. IMPRESSION: Intraprocedural examination within normal limits. Dictated by: Ruperto Harris M.D. on 02/15/2021 at 8:38 Approved by: Ruperto Harris M.D. on 02/15/2021 at 8:38
[2021-02-15] MEDS: fentaNYL 100 MCG/2 ML INJ 50 MCG IV (08:39)
[2021-02-15] MEDS: MIDAZOLAM 5 MG/5 ML VIAL IV (08:39)
[2021-02-15] MEDS: BUPIVACAINE 0.5% (PF) VIAL 2 ML INJ (08:41)
[2021-02-15] MEDS: BETAMETHASONE 30 MG/5 ML MDV 12 MG INJ (08:41)
[2021-02-15] MEDS: IOPAMIDOL 15 ML VIAL 3 ML INJ (08:41)
--- NOTE | 2021-02-15 08:48 | PM.PROC.IR.1 ---
Date/Time/Diagnoses Date of procedure: 02/15/21 Time of procedure: 08:48 Pre-procedure diagnosis: Sacroiliac joint pain/DJD Post-procedure diagnosis: same Procedure Notes Procedure: Fluoroscopically guided contrast controlled right sacroiliac joint injection Indications: Mike is referred by Dr. Montez for treatment of right sacroiliac joint DJD Physician: Kip Alexander Total Fluoroscopy time (seconds): 5 Total sedation minutes: 6 Complications: none Procedure in detail & Post-procedure care: DESCRIPTION OF PROCEDURE Fluoroscopically guided, contrast controlled right sacroiliac joint injection Following review of allergies and review of potential side effects and complications, including, but not necessarily limited to, infection, allergic reaction, local tissue breakdown, temporary as well as permanent nerve injury, paralysis, stroke and possible , the patient indicated that they understood and agreed to proceed. An informed consent was signed by the patient, witnessed by a nurse, and placed in the patient's chart. Additionally, other treatment options including modalities, medications, and physical therapy were reviewed with the patient. After review of previous anaesthesic history and IV conscious sedation the patient was deemed safe to proceed with today?s procedure with IV conscious sedation as ASA class II designation. Safety time-out was performed to confirm patient ID, procedure to be performed and site of procedure. IV sedation was accomplished with a combination of 2mg of Versed and 50mcg of Fentanyl was administered by the RN after DO order, titrated to patient comfort during the course of the procedure while the patient remained responsive to all verbal commands In the prone position following sterile prep and drape of the pelvic region, the hyper lucency on in the inferior aspect of the sacroiliac joint was identified fluoroscopically the skin was anesthetized be a 25 gauge 1 eventual with approximately 2 cc of 1% lidocaine solution. At this point, a 22 gauge 3 in spinal needle was atraumatically introduced and advanced under fluoroscopic guidance into the inferior aspect of the right sacroiliac joint. Following negative aspiration, approximately 0.3cc of Isovue-300 was injected confirming intra-articular placement without vascular uptake. Radiographic data, including multiple fluoroscopic views of the pelvis, reveals a spinal needle in the sacroiliac joint hyper lucent zone. Subsequent view show flow contrast tear superiorly and inferiorly within the joint capsule without vascular intrathecal uptake. At this point a total of 1 of 0.5% Marcaine was combined with 1cc of 6 mg of betamethasone was injected without incident. The procedure tolerated the procedure well without signs or symptoms of complications prior to transfer to the recovery area continued monitoring without incident. The patient was then transferred to the recovery area with a bur observed for an appropriate time after the injection. The patient reverted a vas score of 7 prior to the procedure and post-procedure vas of 1. POSTOP INSTRUCTIONS The patient was provided with a pain like to continue to record the patient's response to the target specific procedure prior to the patient's follow-up visit with the referring physician. Additionally, specific post injection care instructions and a contact number to our office were provided if concerns arise regarding the possible complications associated with procedure are suspected.
== END 2021-02-15 09:11 | disposition home or self-care (01) ==
PROVIDERS: PCP Internal Medicine; Referring Provider Physical Medicine & Rehabilitation; Visit Provider Physical Medicine & Rehabilitation
DX: M53.3 Sacrococcygeal disorders, not elsewhere classified (principal); M46.1 Sacroiliitis, not elsewhere classified
CPT/HCPCS: 27096; J0702; J2250; J3010

== ENCOUNTER → 2021-08-12 12:47 | Outpatient (CLI) | payer OTHER, SELFPAY ==
--- NOTE | 2021-08-12 12:48 | DI.US.S_ITS ---
PROCEDURE: US SCROTUM INDICATIONS: RIGHT GROIN PAIN/MERALGIA PARESTHETICA BILATERAL TECHNIQUE: Real-time scanning was performed of the scrotum and testicles, with image documentation. Color and pulse Doppler interrogation was performed of both testicles. COMPARISON: [facility], , US SCROTUM, 11/29/2019, 11:36. FINDINGS: Right: Testicle is normal in size at 4.7 x 2.0 x 2.8 cm, and homogenous in echotexture. Right epididymal cysts largest measuring 4 mm. Trace hydrocele. No varicoceles. Overlying scrotal skin is normal in thickness. Left: Testicle is normal in size at 4.3 x 1.9 x 2.7 cm, and homogeneous in echotexture. Epididymis is normal in overall size and morphology. Trace hydrocele. No varicoceles. Overlying scrotal skin is normal in thickness. Doppler: Color and pulse Doppler demonstrate normal and symmetric arterial flow in both testicles. IMPRESSION: 1. Normal appearance of the testicles bilaterally. 2. Subcentimeter right epididymal cysts. 3. Trace bilateral hydroceles, likely physiologic. Dictated by: Dinesh Mayers [facility] Interpreted: Mer Guajardo MD on 08/12/2021 at 14:38 Transcribed by: STEVEN on 08/12/2021 at 14:41 Approved by: Mer Guajardo MD, PhD on 08/12/2021 at 14:42
--- NOTE | 2021-08-12 12:49 | DI.MRI.S_ITS ---
PROCEDURE: MR PELIS WO/W CON INDICATIONS: RIGHT GROIN PAIN/MERALGIA PARESTHETICA BILATERAL TECHNIQUE: Noncontrast three plane T1 and STIR sequences. After the administration of contrast, axial/sagittal/coronal T1 spin echo with fat saturation through the pelvis . COMPARISON: None. FINDINGS: Image quality: Excellent. Bones: The visualized bone marrow demonstrates normal signal on all sequences. The overlying cortex appears intact. No abnormal intraosseous enhancement. Soft tissues: No soft tissue masses are visualized. The scanned muscles demonstrate normal overall bulk and internal signal. Subcutaneous tissues appear normal as well. No abnormal soft tissue enhancement. Very tiny fat containing left inguinal hernia. Partially imaged surgical clips of prior vasectomy. IMPRESSION: 1. No explanation for right groin pain. 2. Tiny fat containing left inguinal hernia, likely incidental. 3. Partially imaged surgical clips of prior vasectomy. Dictated by: Freda Watson M.D. on 08/12/2021 at 17:44 Approved by: Freda Watson M.D. on 08/12/2021 at 17:52
== END ==
PROVIDERS: PCP Internal Medicine; Referring Provider Internal Medicine; Visit Provider Internal Medicine
DX: G57.13 Meralgia paresthetica, bilateral lower limbs (principal); N50.3 Cyst of epididymis; R10.31 Right lower quadrant pain
CPT/HCPCS: 72197; 76870

== ENCOUNTER → 2022-11-12 12:36 | Outpatient (CLI) | payer OTHER, SELFPAY ==
[2022-11-12 14:10] LABS: Influenza A - CEPHEID Flu A NEGATIVE (NEGATIVE); Influenza B - CEPHEID Flu B NEGATIVE (NEGATIVE); Respiratory Syncytial Virus Negative (Negative)
[2022-11-12 14:11] LABS: COVID-19 CEPHEID 4-PLEX PCR Negative (Negative)
== END ==
PROVIDERS: PCP Internal Medicine; Visit Provider Physician Assistant
DX: J02.9 Acute pharyngitis, unspecified (principal); R50.9 Fever, unspecified
CPT/HCPCS: 0241U; 87070; 87077; 87147

== ENCOUNTER → 2023-09-25 16:25 | Outpatient (CLI) | payer OTHER, SELFPAY ==
--- NOTE | 2023-09-25 16:26 | DI.MRI.S_ITS ---
PROCEDURE: MR LUMBAR SPINE WO CON INDICATIONS: Radiculopathy, lumbar region TECHNIQUE: Noncontrast sagittal T1 spin echo and T2 fast echo, sagittal STIR, and T2 fast spin echo through the lumbar spine. In cases with scoliosis, additional coronal T2 fast spin echo may be performed. COMPARISON: [facility], MR, MR PELVIS WO/W CON, 08/12/2021, 13:22. [facility] [place] [facility], CR, XR LUMBAR SPINE 2 OR 3 VIEWS, 09/19/2023, 15:04. [facility], MR, MR LUMBAR SPINE WO CON, 02/14/2020, 15:16. FINDINGS: Image quality: Excellent. Alignment and Curvature: There is normal bony alignment. Bone Marrow: Marrow is of normal overall signal. No acute vertebral body compression fractures. Spinal Cord: Conus medullaris terminates at the T12 level. Visualized cord demonstrates normal signal and size. Paraspinous Soft Tissues: No paravertebral masses. T12-L1: Normal appearance. L1-L2: Normal appearance. L2-L3: Mild degenerative disc height reduction and a posterior broad-based disc bulge is present, with minimal symmetric bilateral facet osteoarthritis and no definite secondary impingement on the adjacent nerve roots or cauda equina. L3-L4: Ndxn-[id number] degenerative disc disease with a greater degree of disc desiccation and disc height reduction, with a posterior broad-based transverse disc bulge that has a slightly more prominent appearance than at the level above. Axial imaging shows bilateral facet osteoarthritis with mild hyperostosis and secondary mild to moderate bilateral foraminal stenosis with potential for mild impingement on the course of the adjacent crossing L3 nerve roots. L4-L5: Minimal disc desiccation and disc height reduction without appreciable disc bulging. Facet osteoarthritis is moderate at this level, with secondary hyperostosis mildly narrowing the neural foramen and with potential for mild impingement on the crossing nerve roots. L5-S1: Mild degenerative disc height reduction and desiccation. There is an asymmetric left posterolateral disc bulge which combines with mild facet osteoarthritis to produce asymmetric left-sided mild foraminal stenosis and potential for impingement on the crossing L5 nerve root. IMPRESSION: No disc herniation found. Overall there is [id number]-[id number] degenerative disc disease as discussed in detail by level in the body of the report above. Generally mild potential for nerve root impingement from L2-3 through L4-5, symmetric. Asymmetric mild left-sided predominant nerve root impingement is suspected at L5-S1 due to a left posterolateral disc bulge combining with mild facet hyperostosis at the left neural foramen. Dictated by: Sandeep Castellanos M.D. on 09/27/2023 at 10:08 Approved by: Sandeep Castellanos M.D. on 09/27/2023 at 10:21
== END ==
LOC: MRI 16:25
PROVIDERS: PCP Internal Medicine; Referring Provider Physical Medicine & Rehabilitation; Visit Provider Physical Medicine & Rehabilitation
DX: M51.16 Intervertebral disc disorders with radiculopathy, lumbar region (principal); M51.17 Intervertebral disc disorders with radiculopathy, lumbosacral region; M47.26 Other spondylosis with radiculopathy, lumbar region; M47.27 Other spondylosis with radiculopathy, lumbosacral region
CPT/HCPCS: 72148

== ENCOUNTER 2024-10-23 21:35 | Emergency (ER) | payer OTHER, SELFPAY ==
--- NOTE | 2024-10-23 21:38 | EKG_ITS ---
[address] [address] Test Date: 2024-10-23 Pat Name: Mike Botello Department: Room: Gender: Male Fund Director: JONEL : 1975 Requested By: Order Number: [id number] Reading MD: Jorge Zhao MD Measurements Intervals [place] Rate: 79 P: 31 TN: 152 QRS: -33 QRSD: 88 T: 8 QT: 360 QTc: 412 Interpretive Statements Normal sinus rhythm Left axis deviation Electronically Signed On 10-24-2024 7:38:04 PDT by Jorge Zhao MD
--- NOTE | 2024-10-23 21:38 | DI.RAD.S_ITS ---
PROCEDURE: XR CHEST 1V INDICATIONS: Chest Pain TECHNIQUE: One view of the chest was acquired. COMPARISON: [facility], CR, XR CHEST 1V, 04/30/2020, 14:22. FINDINGS: Surgical changes and devices: None. Lungs and pleura: Lungs are clear. No pleural effusions or pneumothorax. Mediastinum: Mediastinal contours appear normal. Heart size is normal. Bones and chest wall: No suspicious bony lesions. Overlying soft tissues appear unremarkable. IMPRESSION: No acute cardiopulmonary pathology. Dictated by: Kuldip Alves M.D. on 10/23/2024 at 21:58 Approved by: Kuldip Alves M.D. on 10/23/2024 at 21:58
[2024-10-23 21:39] VITALS: BP 139/85; PULSE 82; RESP 18; TEMP 36.9; O2SAT 99; BMI 34.5
[2024-10-23 22:12] LABS: Add Manual Diff / Slide Review NO; Hematocrit 42.0 % (41-53); Hemoglobin 14.7 g/dL (13.5-17.5); Lymphocytes Absolute Auto 2500 /uL (1100-4500); Mean Corpuscular HGB Conc 35.1 % (30-36); Mean Corpuscular Hemoglobin 32.4 PG (26-34); Mean Corpuscular Volume 92.4 fL (80-100); Platelet Count 213 X10^3/uL (150-400)
[2024-10-23 22:16] LABS: INR 2.2 (0.9-1.3); Prothrombin Time 24.3 SECONDS (9.4-12.5)
[2024-10-23 22:18] LABS: PTT Partial Thromboplastin Tim 36 SECONDS (25.1-36.5)
[2024-10-23 22:21] LABS: Alanine Aminotransferase 25 IU/L (<50); Albumin 4.3 g/dL (3.5-5.0); Albumin Globulin Ratio 1.4 (1.0-2.8); Alkaline Phosphatase 138 U/L (38-126); Blood Urea Nitrogen 15 mg/dL (9-20); Calcium 9.0 mg/dL (8.4-10.2); Carbon Dioxide 27 mmol/L (22-32); Chloride 102 mmol/L (98-107); Creatine Kinase 72 U/L (55-170); Estimated Glomerular Filt Rate > 60 mL/min (>60); Globulin 3.0 g/dL (1.7-4.1); Glucose 101 mg/dL (70-99); HEMOLYSIS 20 (0-50); Lipase 91 U/L (23-300); Magnesium 1.9 mg/dL (1.6-2.3); Potassium 4.0 mmol/L (3.4-5.1); Sodium 135 mmol/L (137-145); Total Protein 7.3 g/dL (6.3-8.2)
[2024-10-23 22:32] LABS: NT-proBNP (BNP-Adult 18+) 27 pg/mL (<125); Troponin I < 0.012 ng/mL (0.01-0.034)
--- NOTE | 2024-10-23 23:19 | DI.CT.S_ITS ---
PROCEDURE: CT ANGIO CHEST PE PROTOCOL INDICATIONS: Chest pain with dizziness, hx of PE TECHNIQUE: After the administration of intravenous contrast, 2 mm thick sections acquired from the pulmonary apices to the posterior costophrenic angles. 3-dimensional maximum intensity projection (MIP) coronal and sagittal reformats were then acquired through the thorax. For radiation dose reduction, the following was used: automated exposure control, adjustment of mA and/or kV according to patient size. COMPARISON: [facility], CT, CT ANGIO CHEST PE PROTOCOL, 04/29/2018, 16:21. FINDINGS: Image quality: Diagnostic. Pulmonary arteries: Pulmonary arteries are normal in size, and demonstrate no intraluminal filling defects to suggest central pulmonary embolism. Lower Neck: No enlarged lymph nodes. Thyroid: No thyroid nodules which require sonographic follow up, per consensus guidelines. Axillae: No enlarged lymph nodes. Chest Wall: Unremarkable. Bones: No aggressive appearing bony lesions. Lungs and Pleura: No pneumothorax or pleural effusions. Linear scarring/atelectasis in posterior and lateral periphery of bilateral lung bases are seen. No consolidation or suspicious nodules. Heart: Heart size is mildly enlarged. No pericardial effusion. Thoracic Vessels: No aortic aneurysm. Mediastinum and Natali: No enlarged lymph nodes. Esophagus: No wall thickening. No significant hiatal hernia. Upper Abdomen: Visualized upper abdomen solid organs and bowel loops appear normal. IMPRESSION: 1. No pulmonary embolus. No thoracic aortic aneurysm or gross dissection. 2. Bibasilar scarring/atelectasis. No focal infiltrate, pleural effusion or pneumothorax. 3. No pericardial effusion. No mediastinal or hilar lymphadenopathy. Dictated by: Kuldip Alves M.D. on 10/23/2024 at 23:56 Approved by: Kuldip Alves M.D. on 10/23/2024 at 23:58
[2024-10-23 23:49] VITALS: BP 136/79; PULSE 72; RESP 15; O2SAT 100
[2024-10-24] VITALS: BP 125/64; PULSE 65; RESP 8; O2SAT 98
[2024-10-24 00:30] VITALS: BP 123/69; PULSE 66; RESP 10; O2SAT 99
[2024-10-24 00:38] LABS: Troponin I < 0.012 ng/mL (0.01-0.034)
[2024-10-24 01:00] VITALS: BP 127/65; PULSE 60; RESP 11; O2SAT 96
[2024-10-24 01:30] VITALS: BP 117/64; PULSE 64; RESP 12; O2SAT 97
--- NOTE | 2024-10-24 01:44 | ED.CHESTPAIN ---
HPI - Chest Pain General Chief Complaint: Chest Pain Stated Complaint: dizzy, lightheaded, chest pain, high bp x 1 week Time Seen by Provider: 10/24/24 01:16 Source: patient Mode of arrival: Ambulatory Limitations: no limitations History of Present Illness HPI narrative: 49-year-old male with history of prior saddle pulmonary embolism 2013, DVTs, takes chronic warfarin. Tonight feeling dizzy, lightheaded, with central chest pressure. He has some tunnel vision changes, feels sweaty. Episodes are associated with shortness of breath, intermittent. Took oral hydroxyzine 10:30 p.m., feels improved. Seen at [facility] last week for same symptoms, no CTA that visit. Related Data Home Medications ?Medication ?Instructions ?Recorded ?Confirmed warfarin 5 mg tablet 5 mg PO 5XW 04/14/18 11/12/22 warfarin 7.5 mg tablet 7.5 mg PO SUWE 04/14/18 11/12/22 lisinopril 5 mg tablet 5 mg PO DAILY 04/29/18 11/12/22 acetaminophen 500 mg tablet 500 mg PO Q6H PRN 12/22/20 11/12/22 (Tylenol Extra Strength) cyclobenzaprine 10 mg tablet 10 mg PO BEDTIME 12/22/20 11/12/22 pantoprazole 20 mg tablet,delayed 20 mg PO DAILY 12/22/20 11/12/22 release Previous Rx's ?Medication ?Instructions ?Recorded hydrocodone 5 mg-acetaminophen 325 1 tab PO Q6H PRN pain #10 tabs 11/29/19 mg tablet ([place]) hydrocodone 5 mg-acetaminophen 325 1 tab PO Q6H PRN pain #10 tabs 08/11/20 mg tablet alprazolam 0.5 mg tablet 0.5 mg PO TID PRN ANXIETY- STEROID 02/15/21 FLARE #10 tabs methylprednisolone 4 mg tablets in See Rx Instructions PO PER PKG DIR 03/17/21 a dose pack (Medrol (Hector)) radiculopathy #21 ea gabapentin 100 mg capsule 100 mg PO TID nerve pain #90 caps 04/11/21 gabapentin 300 mg capsule 300 mg PO TID pain #90 caps 10/18/21 amoxicillin 500 mg capsule 500 mg PO BID #20 caps 11/13/22 amoxicillin 875 mg-potassium 1 tab PO BID #20 tabs 09/24/24 clavulanate 125 mg tablet oxycodone-acetaminophen 5 mg-325 1 tab PO Q6H PRN pain #14 tabs 09/24/24 mg tablet Allergies Allergy/AdvReac Type Severity Reaction Status Date / Time No Known Drug Allergies Allergy Verified 09/24/24 11:26 Patient History Medical History Sacral dysfunction Pulmonary embolism DVT (deep venous thrombosis) Surgical History Status post right inguinal hernia repair Social History Smoking Status: Never smoker Smoking Status: Never smoker alcohol intake frequency: a few times a week Alcohol type: beer Exam Narrative Exam Narrative: GENERAL: Well-developed patient, in mild distress. HEAD: Atraumatic. Normocephalic. EYES: Pupils equal round and reactive. Extraocular motions intact. No scleral icterus. No injection or drainage. ENT: Nose without bleeding, purulent drainage. Throat without erythema, tonsillar hypertrophy or exudate. Airway patent. NECK: Trachea midline. Non tender CARDIOVASCULAR: Regular rate and rhythm without murmurs, gallops, or rubs. RESPIRATORY: Clear to auscultation. Breath sounds equal bilaterally. No wheezes, rales, or rhonchi. GASTROINTESTINAL: Abdomen soft, non-tender, nondistended. EXTREMITIES: No edema or joint tenderness. BACK: Nontender without deformity or crepitance. No flank tenderness. NEURO: AOx3. Motor functions grossly nonfocal. SKIN: No rash or erythema of visible areas Initial Vital Signs Initial Vital Signs: Vital Signs Temperature 98.5 F 10/23/24 21:39 Pulse Rate 82 10/23/24 21:39 Respiratory Rate 18 10/23/24 21:39 Blood Pressure 139/85 10/23/24 21:39 Pulse Oximetry 99 10/23/24 21:39 Oxygen Delivery Method Room Air 10/23/24 21:39 Course Orders Ordered: ED Orders 10/23/24 21:38 XR chest 1V Stat EKG-12 Lead Stat 10/23/24 22:02 Complete Blood Count AUTO DIFF Stat Comprehensive Metabolic Panel Stat Lipase Stat Magnesium Stat NT-proBNP (BNP-Adult 18+) Stat PTT Partial Thromboplastin Terence Stat Prothrombin Time INR Stat Troponin & CK Cardiac Panel Stat 10/23/24 23:19 CT angio chest PE protocol Stat 10/23/24 23:50 Troponin I Stat Discontinued Medications Aspirin (Aspirin 81 Mg Chew Tab) 324 mg PO NOW ONE Stop: 10/23/24 21:39 Last Admin: 10/24/24 02:21 Dose: Not Given Documented By: LS Vital Signs Vital signs: Vital Signs - 8 hr 10/23/24 21:39 10/23/24 23:49 10/23/24 23:49 Temperature 98.5 F Pulse Rate 82 72 Respiratory Rate 18 15 Blood Pressure 139/85 136/79 Pulse Oximetry 99 100 Oxygen Delivery Method Room Air Room Air 10/24/24 00:00 10/24/24 00:00 10/24/24 00:30 Temperature Pulse Rate 65 66 Respiratory Rate 8 L 10 L Blood Pressure 125/64 Pulse Oximetry 98 99 Oxygen Delivery Method Room Air Room Air 10/24/24 00:30 10/24/24 01:00 10/24/24 01:00 Temperature Pulse Rate 60 Respiratory Rate 11 L Blood Pressure 123/69 127/65 Pulse Oximetry 96 Oxygen Delivery Method Room Air 10/24/24 01:30 10/24/24 01:30 10/24/24 02:00 Temperature Pulse Rate 64 69 Respiratory Rate 12 11 L Blood Pressure 117/64 Pulse Oximetry 97 99 Oxygen Delivery Method Room Air Room Air 10/24/24 02:00 Temperature Pulse Rate Respiratory Rate Blood Pressure 128/72 Pulse Oximetry Oxygen Delivery Method MDM - Chest Pain Lab Data Attestation: I reviewed the patient's lab results. Lab results narrative: White blood cell count 7200, hemoglobin 14.7, platelets adequate. Glucose 101. Normal renal function, serum CO2, potassium. Sodium 135 slight low. Alkaline phosphatase 138 slight elevation, other liver functions normal. Lipase normal. Troponin negative/unmeasurable for 2 interval sets. INR 2.2 on warfarin. 10/23/24 22:02 10/23/24 22:02 Labs: Lab Results 10/23/24 10/24/24 Range/Units 22:02 00:08 WBC 7.2 (4.5-11.0) X10^3/uL RBC 4.54 (4.5-5.9) X10^6/uL Hgb 14.7 (13.5-17.5) g/dL Hct 42.0 (41-53) % MCV 92.4 (80-100) fL MCH 32.4 (26-34) PG MCHC 35.1 (30-36) % RDW 13.4 (11.6-14.8) % Plt Count 213 (150-400) X10^3/uL Neut % (Auto) 56.4 (50-75) % Lymph % (Auto) 34.0 (25-40) % [place] % (Auto) 7.1 (3-14) % Eos % (Auto) 1.8 L (2-4) % Baso % (Auto) 0.7 (0-2) % Neut # (Auto) 4100 (5174-8003) /uL Lymph # (Auto) 2500 (1429-8675) /uL [place] # (Auto) 500 (0-900) /uL Eos # (Auto) 100 (0-450) /uL Baso # (Auto) 100 (0-100) /uL PT 24.3 H (9.4-12.5) SECONDS INR 2.2 H (0.9-1.3) APTT 36 (25.1-36.5) SECONDS Sodium 135 L (137-145) mmol/L Potassium 4.0 (3.4-5.1) mmol/L Chloride 102 (98-107) mmol/L Carbon Dioxide 27 (22-32) mmol/L BUN 15 (9-20) mg/dL Creatinine 0.81 (0.66-1.25) mg/dL Estimated GFR > 60 (>60) mL/min BUN/Creatinine Ratio 18.5 (6-22) Glucose 101 H (70-99) mg/dL Calcium 9.0 (8.4-10.2) mg/dL Magnesium 1.9 (1.6-2.3) mg/dL Total Bilirubin 0.4 (0.2-1.3) mg/dL AST 32 (17-59) IU/L ALT 25 (<50) IU/L Alkaline Phosphatase 138 H (38-126) U/L Total Creatine Kinase 72 (55-170) U/L Troponin I < 0.012 < 0.012 (0.01-0.034) ng/mL NT-Pro-B Natriuret Pep 27 (<125) pg/mL Total Protein 7.3 (6.3-8.2) g/dL Albumin 4.3 (3.5-5.0) g/dL Globulin 3.0 (1.7-4.1) g/dL Albumin/Globulin Ratio 1.4 (1.0-2.8) Lipase 91 (23-300) U/L Imaging Data Chest x-ray: Radiologist's Impression: [address] [address] XRay Report Signed Patient: Mike Botello MR#: [id number] : 1975 Acct:[id number] Age/Sex: 49 / M Date of Service: 10/23/24 Loc: ED Accession Number: [id number] Procedure: XR chest 1V Ordering Provider: Rolando Tavarez MD PROCEDURE: XR CHEST 1V INDICATIONS: Chest Pain TECHNIQUE: One view of the chest was acquired. COMPARISON: [facility], , XR CHEST 1V, 04/30/2020, 14:22. FINDINGS: Surgical changes and devices: None. Lungs and pleura: Lungs are clear. No pleural effusions or pneumothorax. Mediastinum: Mediastinal contours appear normal. Heart size is normal. Bones and chest wall: No suspicious bony lesions. Overlying soft tissues appear unremarkable. IMPRESSION: No acute cardiopulmonary pathology. Dictated by: Kuldip Alves M.D. on 10/23/2024 at 21:58 Approved by: Kuldip Alves M.D. on 10/23/2024 at 21:58 [facility] Narrative Medical decision making narrative: 49-year-old male with history of PE and DVT, taking chronic warfarin, having dizziness lightheaded chest pressure, tunnel vision, diaphoresis, generalized fatigue. Intermittent shortness of breath. Took hydroxyzine 8:30 p.m. seems to have helped. Fast heart rate sensation most of the night previous night. Patient was seen at [facility] similar symptoms, no CT that visit. Labs pending. EKG normal sinus rhythm, no obvious ischemic changes. Chest x-ray no acute changes. See radiology report. Lab data: White blood cell count 7200, hemoglobin 14.7, platelets adequate. Glucose 101. Normal renal function, serum CO2, potassium. Sodium 135 slight low. Alkaline phosphatase 138 slight elevation, other liver functions normal. Lipase normal. Troponin negative/unmeasurable for 2 interval sets. INR 2.2 on warfarin CTA chest, no acute changes, no pulmonary embolus, no infiltrates. See radiology report. Consider cardiac monitoring as an outpatient. Response to hydroxyzine, consider anxiety/panic. Continue taking hydroxyzine as needed. Follow up with PCP for further evaluation as an outpatient. Patient given contact information for local dry end operator Dr. Guzman, might need primary care referral, but contact information given to expedite follow up, further workup as an outpatient for now. Return precautions discussed. Discharge Plan Departure Patient Disposition: Home Clinical Impression: Chest pain, Dyspnea Instructions: DI for Atypical Chest Pain Activity Restrictions/Additional Instructions: History of prior blood clots to the lungs, and of the legs, taking chronic warfarin anticoagulation. Today with dizziness lightheadedness chest discomfort, intermittent, associated sweatiness, and generalized fatigue. Chest x-ray without acute changes. EKG and blood tests not suggestive of heart attack at this time. CT angiogram of the chest was also performed, no blood clots to the lungs, no pneumonia changes, possible scarring versus atelectasis, per Radiology report. Symptoms seemed to have improved some with hydroxyzine taken prior to arrival. Further testing as an outpatient for now. Given contact information for local dry end operator Dr. Guzman, consider contacting his office later today during open hours, to coordinate further follow up as an outpatient. Continue chronic medications for now. Follow up with local dry end operator as above, return to this/nearest emergency department for any change worsening symptoms or any concerns prior. Prescriptions: No Action warfarin 7.5 mg tablet 7.5 mg PO SUWE Patient Comments: 1 tab Sun, W warfarin 5 mg tablet 5 mg PO 5XW Patient Comments: 1 tab M,T, TH, F, Sat. methylprednisolone [Medrol (Hector)] 4 mg tablets,dose pack See Rx Instructions PO PER PKG DIR Qty: 21 0RF Rx Instructions: PO PER PKG DIR gabapentin 100 mg capsule 100 mg PO TID Qty: 90 1RF Rx Instructions: TO BE USED WITH 300MG OR JUST THE 100MG IF NEEDED. THIS IS ORDERED FOR ABILITY TO REDUCE DOSAGE OR INCREASE. gabapentin 300 mg capsule 300 mg PO TID Qty: 90 2RF Rx Instructions: START WITH 1-300MG FOR 3 NIGHTS. THEN TRY 2-300MG AT NIGHT FOR 3 NIGHTS. THEN YOU CAN ADD 1-300MG DURING THE DAY EITHER AM OR LUNCH TIME. THIS CAN BE SEDATING USE WITH CAUTION. amoxicillin 500 mg capsule 500 mg PO BID Qty: 20 0RF hydrocodone-acetaminophen [Troy] 5-325 mg tablet 1 tab PO Q6H PRN (Reason: pain) Qty: 10 0RF lisinopril 5 mg tablet 5 mg PO DAILY hydrocodone-acetaminophen 5-325 mg tablet 1 tab PO Q6H PRN (Reason: pain) Qty: 10 0RF amoxicillin-pot clavulanate 875-125 mg tablet 1 tab PO BID Qty: 20 0RF oxycodone-acetaminophen 5-325 mg tablet 1 tab PO Q6H PRN (Reason: pain) Qty: 14 0RF cyclobenzaprine 10 mg tablet 10 mg PO BEDTIME pantoprazole 20 mg tablet,delayed release (DR/EC) 20 mg PO DAILY acetaminophen [Tylenol Extra Strength] 500 mg tablet 500 mg PO Q6H PRN alprazolam 0.5 mg tablet 0.5 mg PO TID MDD 3 PRN (Reason: ANXIETY- STEROID FLARE) Qty: 10 0RF Rx Instructions: TAKE 1-2 TABS IF UNABLE TO SLEEP DUE TO STEROID FLARE. MAX IN 24/HRS 3 TABS Referrals: Jus Montez MD [Primary Care Provider, Internal Medicine] Stand Alone Forms: Patient Portal/API
[2024-10-24 02:00] VITALS: BP 128/72; PULSE 69; RESP 11; O2SAT 99
== END 2024-10-24 02:21 | disposition home or self-care (01) ==
PROVIDERS: Emergency Provider Emergency Medicine; PCP Internal Medicine
DX: R07.9 Chest pain, unspecified (principal); R06.00 Dyspnea, unspecified; Z86.711 Personal history of pulmonary embolism; Z79.01 Long term (current) use of anticoagulants
CPT/HCPCS: 36415; 71045; 71275; 80053; 82550; 83690; 83735; 83880; 84484; 85025; 85610; 85730; 93005; 99283; 99284; Q9967

== ENCOUNTER → 2024-12-09 14:44 | Outpatient (CLI) | payer OTHER, SELFPAY ==
--- NOTE | 2024-12-10 13:35 | DI.NM.S_ITS ---
DATE OF SERVICE: 12/09/2024 PROCEDURE: Exercise stress test. INDICATIONS: Chest pain with underlying hyperlipidemia. CARDIAC STRESS: Patient underwent exercise stress test under the supervision of an attending staff. The patient walked on Matti protocol for 9 minutes, achieved a maximum heart rate of 173, which was 101% of target heart rate, resting blood pressure 120/82 and peak blood pressure 190/102 with hypertensive blood pressure response. 10.1 METS of workload. GINGER positive 16%. Baseline rhythm sinus. During stress, no convincing ischemic changes seen. No significant arrhythmias. No chest pain. Had some shortness of breath. Normal recovery. CONCLUSION: Exercise stress test is negative for inducible ischemia. Mildly diminished exercise tolerance. Hypertensive blood pressure response. No arrhythmias. Normal recovery. Overall, low-risk exercise stress test. Rosmery Mike - Joel/CAIN doc#: [id number]/job#: [id number] dd: 12/09/2024 17:17:00 dt: 12/10/2024 01:57:00 DICTATING /COPIES TO: Bina Piedra MD COPIES MNE: TIFFANY;
== END ==
LOC: NUCM 14:45
PROVIDERS: Referring Provider Internal Medicine Cardiovascular Disease; Visit Provider Internal Medicine Cardiovascular Disease
DX: R07.89 Other chest pain (principal); R00.2 Palpitations
CPT/HCPCS: 93017

== ENCOUNTER 2024-12-11 19:32 | Emergency (ER) | payer OTHER, SELFPAY ==
[2024-12-11] VITALS (7 sets, daily range): BP systolic 113–154; BP diastolic 64–86; PULSE 74–100; RESP 12–24; TEMP 36.7; O2SAT 95–98; BMI 35.2
--- NOTE | 2024-12-11 20:11 | ED.EXTPRO ---
HPI - Extremity Problem General Chief complaint: Extremity Problem,Nontraumatic Stated complaint: Hx of clots, pain in L thigh for a couple wks Time Seen by Provider: 12/11/24 20:10 Source: patient Mode of arrival: Ambulatory History of Present Illness HPI Narrative: Patient is a 49-year-old male past medical history of DVT PE on warfarin comes into the ED from home for evaluation of left thigh pain states it has been ongoing persistent for a few weeks. Denies any numbness weakness tingling to the lower extremity. States that he is not having any other symptoms such as headache visual disturbance chest pain shortness breath fever chills nausea vomiting abdominal pain or any other GI/ symptoms. But states that due to persistent symptoms wanted to be evaluated. He did state that these symptoms started when he was doing a lot of yd work a proximally 1 month ago. Related Data Home Medications ?Medication ?Instructions ?Recorded ?Confirmed warfarin 5 mg tablet 5 mg PO 5XW 04/14/18 11/12/22 warfarin 7.5 mg tablet 7.5 mg PO SUWE 04/14/18 11/12/22 lisinopril 5 mg tablet 5 mg PO DAILY 04/29/18 11/12/22 acetaminophen 500 mg tablet 500 mg PO Q6H PRN 12/22/20 11/12/22 (Tylenol Extra Strength) cyclobenzaprine 10 mg tablet 10 mg PO BEDTIME 12/22/20 11/12/22 pantoprazole 20 mg tablet,delayed 20 mg PO DAILY 12/22/20 11/12/22 release Previous Rx's ?Medication ?Instructions ?Recorded hydrocodone 5 mg-acetaminophen 325 1 tab PO Q6H PRN pain #10 tabs 11/29/19 mg tablet (Paxton) hydrocodone 5 mg-acetaminophen 325 1 tab PO Q6H PRN pain #10 tabs 08/11/20 mg tablet alprazolam 0.5 mg tablet 0.5 mg PO TID PRN ANXIETY- STEROID 02/15/21 FLARE #10 tabs methylprednisolone 4 mg tablets in See Rx Instructions PO PER PKG DIR 03/17/21 a dose pack (Medrol (Hector)) radiculopathy #21 ea gabapentin 100 mg capsule 100 mg PO TID nerve pain #90 caps 04/11/21 gabapentin 300 mg capsule 300 mg PO TID pain #90 caps 10/18/21 amoxicillin 500 mg capsule 500 mg PO BID #20 caps 11/13/22 amoxicillin 875 mg-potassium 1 tab PO BID #20 tabs 09/24/24 clavulanate 125 mg tablet oxycodone-acetaminophen 5 mg-325 1 tab PO Q6H PRN pain #14 tabs 09/24/24 mg tablet Allergies Allergy/AdvReac Type Severity Reaction Status Date / Time No Known Drug Allergies Allergy Verified 12/11/24 19:35 Review of Systems Review of Systems Narrative: General: Denies fever, chills, weight loss HEENT: Denies headache, eye drainage, eye irritation, head trauma, sore throat, voice change Cardiovascular: Denies any chest pain, palpitations, tachycardia Respiratory: Denies any shortness of breath, cough, wheeze, stridor GI/: Denies any abdominal pain, nausea, vomiting, diarrhea, bright red blood per rectum, melanotic stools, urinary frequency, urinary retention, dysuria, hematuria MSK: Positive left thigh pain Skin: Denies any rashes, lesions, discoloration Neuro: Denies any headache, lightheadedness, dizziness, fainting, weakness Psych: Denies SI/HI Patient History Medical History Sacral dysfunction Pulmonary embolism DVT (deep venous thrombosis) Surgical History Status post right inguinal hernia repair Social History Smoking Status: Former smoker Smoking Status: Former smoker alcohol intake frequency: a few times a week Alcohol type: beer Exam Narrative Exam Narrative: General: Cooperative, well-developed, not in acute distress HEENT: Normocephalic, atraumatic, PERRLA, normal sclera, eyelids normal Neck: Active full range of motion, atraumatic Chest: Normal to inspection, negative crepitus, no overlying erythema ecchymosis Respiratory: Normal respiratory effort, not in acute respiratory distress, clear to auscultation bilaterally negative cough, wheeze, tachypnea, rhonchi, rales Cardiology: Regular rate rhythm negative gallop, murmur, rubs GI/: No tenderness to palpation, soft, non rigid, normal to inspection, exam deferred MSK: Full active range of motion in all 4 extremities, atraumatic, no tenderness to palpation of any bony prominences, patient able to stand bear weight ambulate unassisted here in the emergency department, bilateral lower extremities are neurovascularly intact Skin: No rashes or lesions noted Neuro: Alert awake oriented x3, moves all 4 extremities spontaneously, cranial nerves intact, able to answer all questions appropriately follows commands appropriately Psych: Cooperative, negative suicidal or homicidal ideations Initial Vital Signs Initial Vital Signs: Vital Signs Temperature 98.0 F 12/11/24 19:35 Pulse Rate 90 12/11/24 19:35 Respiratory Rate 18 12/11/24 19:35 Blood Pressure 154/81 H 12/11/24 19:35 Pulse Oximetry 98 12/11/24 19:35 Oxygen Delivery Method Room Air 12/11/24 19:35 Course Orders Ordered: ED Orders 12/11/24 20:11 US periph venous low extrem lt Stat Vital Signs Vital signs: Vital Signs - 8 hr 12/11/24 19:35 12/11/24 20:08 12/11/24 20:11 Temperature 98.0 F Pulse Rate 90 100 H Pulse Rate [Left Dorsalis Pedis] Respiratory Rate 18 Blood Pressure 154/81 H 138/86 Pulse Oximetry 98 96 Oxygen Delivery Method Room Air 12/11/24 20:11 12/11/24 20:12 12/11/24 21:09 Temperature Pulse Rate 86 82 Pulse Rate [Left Dorsalis Pedis] 89 Respiratory Rate 24 19 Blood Pressure Pulse Oximetry 98 96 Oxygen Delivery Method Room Air 12/11/24 21:10 12/11/24 21:10 Temperature Pulse Rate 79 Pulse Rate [Left Dorsalis Pedis] Respiratory Rate 12 Blood Pressure 118/64 Pulse Oximetry 97 Oxygen Delivery Method Room Air MDM - Extremity (Nontraumatic) MDM Narrative Medical decision making narrative: 49-year-old male with a past medical history of DVT PE on warfarin comes into the ED from home for evaluation of left eye pain, states it started a proximally 1 month ago after doing a lot of yd work, he states that since then he feels like a burning sensation to his left thigh whenever he starts to get up and walk on it however and denies any numbness weakness tingling denies any trauma. Has been compliant with all his medications states that his INR was checked yesterday and it was 2.1. He denies any numbness weakness tingling to his left leg. On my exam neurovascularly intact no erythema no tenderness to palpation. We discussed trialing him on gabapentin, he states that he has some for history of pain in the past states he will try this at home and follow up with his primary care doctor. Strict return precautions given he verbalized understanding agrees to being discharged home with outpatient follow up Discharge Plan Departure Patient Disposition: Home Clinical Impression: Acute pain of left thigh Activity Restrictions/Additional Instructions: Please trial your gabapentin and follow up with your primary care doctor for continued evaluation treatment of your symptoms Please read the discharge instructions sheet carefully and bring all papers to all doctor follow-up visits, as it may contain information that your doctor may want to see. Disease processes change and evolve, if your symptoms worsen or if you develop any new symptoms that are concerning to you please return for evaluation. Your evaluation today does not show any evidence of any life-threatening/serious illnesses requiring admission to the hospital or surgery. Please follow-up with your doctor for re-evaluation in approximately 1 day. Seek immediate medical attention for any worrisome symptoms. *If you do not have a primary care provider please contact the [facility] Resource line at [phone]. They will ask some questions about your medical history and help get you set up with a doctor in the community. Prescriptions: No Action warfarin 7.5 mg tablet 7.5 mg PO SUWE Patient Comments: 1 tab Sun, W warfarin 5 mg tablet 5 mg PO 5XW Patient Comments: 1 tab M,T, TH, F, Sat. methylprednisolone [Medrol (Hector)] 4 mg tablets,dose pack See Rx Instructions PO PER PKG DIR Qty: 21 0RF Rx Instructions: PO PER PKG DIR gabapentin 100 mg capsule 100 mg PO TID Qty: 90 1RF Rx Instructions: TO BE USED WITH 300MG OR JUST THE 100MG IF NEEDED. THIS IS ORDERED FOR ABILITY TO REDUCE DOSAGE OR INCREASE. gabapentin 300 mg capsule 300 mg PO TID Qty: 90 2RF Rx Instructions: START WITH 1-300MG FOR 3 NIGHTS. THEN TRY 2-300MG AT NIGHT FOR 3 NIGHTS. THEN YOU CAN ADD 1-300MG DURING THE DAY EITHER AM OR LUNCH TIME. THIS CAN BE SEDATING USE WITH CAUTION. amoxicillin 500 mg capsule 500 mg PO BID Qty: 20 0RF hydrocodone-acetaminophen [Paxton] 5-325 mg tablet 1 tab PO Q6H PRN (Reason: pain) Qty: 10 0RF lisinopril 5 mg tablet 5 mg PO DAILY hydrocodone-acetaminophen 5-325 mg tablet 1 tab PO Q6H PRN (Reason: pain) Qty: 10 0RF amoxicillin-pot clavulanate 875-125 mg tablet 1 tab PO BID Qty: 20 0RF oxycodone-acetaminophen 5-325 mg tablet 1 tab PO Q6H PRN (Reason: pain) Qty: 14 0RF cyclobenzaprine 10 mg tablet 10 mg PO BEDTIME pantoprazole 20 mg tablet,delayed release (DR/EC) 20 mg PO DAILY acetaminophen [Tylenol Extra Strength] 500 mg tablet 500 mg PO Q6H PRN alprazolam 0.5 mg tablet 0.5 mg PO TID MDD 3 PRN (Reason: ANXIETY- STEROID FLARE) Qty: 10 0RF Rx Instructions: TAKE 1-2 TABS IF UNABLE TO SLEEP DUE TO STEROID FLARE. MAX IN 24/HRS 3 TABS Stand Alone Forms: Patient Portal/API
--- NOTE | 2024-12-11 20:11 | ED_ITS ---
HPI - Extremity Problem
--- NOTE | 2024-12-11 20:11 | DI.US.S_ITS ---
PROCEDURE: US PERIPH VENOUS LOW EXTREM LT
== END 2024-12-11 22:05 | disposition home or self-care (01) ==
PROVIDERS: Emergency Provider Student in an Organized Health Care Education/Training Program
DX: M79.652 Pain in left thigh (principal); Z79.01 Long term (current) use of anticoagulants; Z86.711 Personal history of pulmonary embolism
CPT/HCPCS: 93971; 99281; 99283